=== PATIENT | female | born 1935 | race Caucasian/White ===

== ENCOUNTER 2023-07-26 10:07 | Inpatient (IN) ==
[2023-07-26] MEDS: AMIODARONE 150MG / 100ML D5W IV ONE (10:12)
--- OUTSIDE RECORDS SUMMARY | 2023-07-26 10:13 | External Medical Summary | Summary of Care ---
Author Name Unknown Organization [facility] Address [address] [facility] [place] [address] Phone [phone] Care Team Providers Care Healthcare Liaison Name Role Phone Elijah Rodriguez Primary Care Provider [phone] Reason for Visit * Reason Comments Rheum Follow Up Prolia * Precert (Within 10 days (routine)) - Authorized Specialty Diagnoses / Procedures Referred By Contac t Referred To Contact Rheumatology Diagnoses Age-related osteoporosis without current pathological fracture Procedures [place]OSUMAB 1MG, [place] [address] [place] [address] Referral ID Status Reason Start Date Expiration Date V isits Requested Visits Authorized [id number] Authorized Precert 03/22/2018 03/08/2099 99 99 Encounter Details Date Type Department Care Team (Late st Contact Info) Description 07/17/2023 1:20 PM EDT Office Visit Rheumatology [address] [place], [place] [address] Duane Cantor MD [address] [facility] [place] [address] Senile osteoporosis* Allergies No known active allergiesdocumented as of this encounter (statuses as of 07/17/2023) Medications Medication Sig Dispensed Refills Start Date End Date Status MULTIVITAMIN TABS OR 1 tab by mouth daily 0 12/13/1999 Active VITAMIN D 1000 UNIT PO TABS once daily 0 Active Polyethylene Glycol 3350 17 GM Oral Packet Take 1 Packet by mouth as needed. Pt uses daily 0 07/06/2014 Active Nutritional Supplements (BOOST) LIQD Take 1 Can by mouth three times a day with meals. 0 07/06/2014 Active Denosumab 60 MG/ML Subcutaneous Solution Inject 60 mg under the skin once. Every 6 months 0 Active AMBULATORY MISCELLANEOUS MEDICATIONIndication s:Parkinson's disease (HCC) Inbrija 42 mg capsule. Inhale orally via inhaler up to twice a day for off-periods 60 Cap 3 09/13/2018 Active Fluticasone Propionate 50 MCG/ACT Nasal Suspension (Flonase)Indications :Seasonal allergic rhinitis due to pollen Administer into each nostril 2 Sprays in the morning. 18.2 mL 3 06/05/2021 Active Tums Ultra 1000 1000 MG Oral Tablet Chewable (Calcium Carbonate Antacid) Take 1 Tablet by mouth in the morning. 0 Active Carbidopa-Levodopa 25-100 MG Oral Tablet (Sinemet) TAKE 1 TABLET BY MOUTH AT 6 AM, 9 AM, 12 PM, 3 PM, 6 PM, 9 PM, AND 1/2 TABLET AT BEDTIME 585 Tablet 3 01/15/2023 Active Fludrocortisone Acetate 0.1 MG Oral Tablet (Florinef) Take 1 Tablet by mouth in the morning. 100 Tablet 4 04/20/2023 Active traMADol HCl 50 MG Oral Tablet (Ultram)Indications: History of vertebral compression fracture Take 1 Tablet by mouth every 6 hours as needed for Pain, Mild or Pain, Moderate. 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 Increased risk for Maturity-onset diabetes of the young (MODY3). Please click the link below into your browser for a brief summary of current clinical management recommendations for maturity onset diabetes of the young HNF1A Severe protein-calorie malnutrition 04/25/2022 Stage 3a chronic kidney disease 01/16/2020 Overview: Per CKD protocol - Per CKD protocol History of nonmelanoma skin cancer 02/03/2017 History of vertebral compression fracture 2014 CLL (chronic lymphocytic leukemia) 05/12/2011 Senile osteoporosis 04/05/2008 ADVANCE DIRECTIVE INFORMATION 11/04/2004 Overview: No, Advance Directive brochure given to patient at prior appointment. Vitamin D deficiency 03/18/2004 Sensory hearing loss 12/20/2002 Overview: hearing aid R Retinal detachment Parkinson's disease Overview: L sided- LE>UE akithesia documented as of this encounter (statuses as of 07/17/2023) Resolved Problems Problem Noted Date Diagnosed Date Resolved Date Kidney disease, chronic, sta ge III (GFR 30-59 ml/min) 11/15/2019 01/19/2020 Overview: Per CKD protocol Malignant neoplasm of scalp and skin of neck 2 02/03/2017 Overview: ICD-10 update of inactive term ruptured tiny milia, nape of neck 04/06/98 01/06/2002 11/24/2016 Malignant neoplasm of scalp and skin of neck 2 02/03/2017 Overview: ICD-10 update of inactive term Malignant neoplasm of scalp and skin of neck 2 02/03/2017 Overview: ICD-10 update of inactive term Seborrheic dermatitis 01/06/20022017 Overview: ICD-10 update of inactive term Herpes zoster 01/06/2002 11/24/2016 Raynaud's syndrome 8 Major depressive disorder Overview: ICD-10 update of inactive term Osteoporosis 08/18/2016 documented as of this encounter (statuses as of 07/17/2023) Immunizations Name Administration Dates Next Due COVID-19 mRNA, LNP-s, No Pre serve, 2-Dose Series (Moderna) 06/07/2020,05/07/2020 COVID-19, mRNA, LNP-s, PF, B ooster, 100mcg/0.5mg (Moderna) 01/09/2021 Pneumococcal Conjugate Vacc, 13 Valent (Prevnar) 10/18/2014 Season Influenza, Quad, PF, Adjuvanted, 65+ Yrs, IM (FLUAD) 11/11/2019 Seasonal Influenza, PF, 6 M & above, IM , (FluLaval or Fluzone) 12/06/2018,12/02/2017 Seasonal Influenza, Quadriva lent Hd (Fluzone Hd) 12/11/2022,11/27/2021,12/04/2020 Seasonal Influenza, Quadriva lent, No Preserve, IM 11/19/2016,12/18/2015 12/17/2016 Seasonal Influenza, Split, I IV3, With Preserve, Inj 11/28/2014,12/10/2013,11/20/2012,11/26,11/26/2010,12/19/2009,12/30/2007 ,12/10/2006,12/10/2005 TDAP (age 10 and older)(Boostrix) 01/11/2013 Varicella Zoster Vaccine (Adult) 05/29/2011 documented as of this encounter Social History Tobacco Use Types Packs/Day Years Used Date Smoking Tobacco: Never Smokeless Tobacco: Never Alcohol Use Standard Drinks/Week Comments No 0 (1 standard drink = 0.6 oz pur e alcohol) PHQ-2 Answer Date Recorded PHQ Adult Total Score 0 09/17/2022 Hunger Vital Sign Answer Date Recorded Worried About Running Out of Food in the Last Ye ar Never true 12/08/2018 Ran Out of Food in the Last Year Never true 12/08/2018 Sex and Gender Information Value Date Recorded Sex Assigned at Female 12/29/2021 10:13 AM EDT Gender Identity Female 12/29/2021 10:13 AM EDT Sexual Orientation Straight 12/29/2021 10 :13 AM EDT Job Start Date Occupation Industry Not on file Not on file Not on file documented as of this encounter Last Filed Vital Signs Vital Sign Reading Time Taken Comments Blood Pressure 100/60 07/17/2023 1:17 PM EDT Pulse - - Temperature 36.1 C (97 F) 07/17/2023 1:17 PM EDT Respiratory Rate - - Oxygen Saturation - - Inhaled Oxygen Concentration - - Weight - - Height - - Body Mass Index - - documented in this encounter Progress Notes * Sandy Doe LPN - 07/17/2023 1:34 PM EDT Florencio Canseco presents today for administration of Prolia. She understands the benefits and risksof this treatment. An educational pamphlet was given to the patient. Prolia 60 mg was administered subcutaneously. The patient tolerated the procedure without problems. She will return in 6 months for the next injection and evaluation. Sandy Doe LPN * Duane Cantor MD - 07/17/2023 1:20 PM EDT [facility] ([facility] follow up Previous Visit Plan from 07/2022 reviewed. Reason for visit: Patient seen today for further follow-up/evaluation of osteoporosis. She is remained on Prolia. She has not had a DEXA since 2020 but her states it is difficult to get her here and to do the test. She has had multiple falls recently but no fractures. Bone Health Summary: Risks: Falls since last [facility] visit: yes Personal History of Fx since last [facility] Visit: no Prevention: Exercise : 3 or more times weekly: No Nutrition: eats calcium rich foods, Yes some Gait: unsteady with walking, Yes, use of cane/walker, Yes, walker, wheel chair Calcium and Vitamin D supplements in adequate doses: Yes ROS: . Constitutional: normal . Ears, nose, throat, mouth: normal . Cardiovascular: normal . Respiratory: normal . Gastrointestinal: normal . Musculoskeletal: weak muscles . Genitourinary: normal Medications: Current Outpatient Medications Medication Sig Dispense Refill MULTIVITAMIN TABS OR 1 tab by mouth daily 0 VITAMIN D 1000 UNIT PO TABS once daily Polyethylene Glycol 3350 17 GM Oral Packet Take 1 Packet by mouth as needed. Pt uses daily Nutritional Supplements (BOOST) LIQD Take 1 Can by mouth three times a day with meals. Denosumab 60 MG/ML Subcutaneous Solution Inject 60 mg under the skin once. Every 6 months AMBULATORY MISCELLANEOUS MEDICATION Inbrija 42 mg capsule. Inhale orally via inhaler up to twice a day for off-periods 60 Cap 3 Fluticasone Propionate 50 MCG/ACT Nasal Suspension (Flonase) Administer into each nostril 2 Sprays in the morning. 18.2 mL 3 Tums Ultra 1000 1000 MG Oral Tablet Chewable (Calcium Carbonate Antacid) Take 1 Tablet by mouth in the morning. Carbidopa-Levodopa 25-100 MG Oral Tablet (Sinemet) TAKE 1 TABLET BY MOUTH AT 6 AM, 9 AM, 12 PM, 3 PM, 6 PM, 9 PM, AND 1/2 TABLET AT BEDTIME 585 Tablet 3 Fludrocortisone Acetate 0.1 MG Oral Tablet (Florinef) Take 1 Tablet by mouth in the morning. 100 Tablet 4 traMADol HCl 50 MG Oral Tablet (Ultram) Take 1 Tablet by mouth every 6 hours as needed for Pain, Mild or Pain, Moderate. 90 Tablet 0 Current Facility-Administered Medications Medication Dose Route Frequency Provider Last Rate Last Admin Denosumab (Prolia) subcut inj 60 mg 60 mg Subcutaneous Once Duane Cantor MD Social History: Social History Tobacco Use Smoking status: Never Smokeless tobacco: Never Vaping Use Vaping Use: Never used Substance Use Topics Alcohol use: No Drug use: No Physical Exam: BP 100/60 | Temp 36.1 C (97 F) General: alert, thin, frail eldely female examined in wheel chair HENT: normocephalic, external ears normal, no mucosal erythema, no mucosal edema, moist mucosa, no oral ulcers Heart: regular rate & rhythm and no gallops Lungs: clear to auscultation , no rales, wheezes or rhonchi Abdomen: abdomen soft, non-tender, and normal bowel sounds Musculoskeletal Exam: Generalized weakness noted Thoracic kyphosis noted Assessment: M81.0 Senile osteoporosis (primary encounter diagnosis) 87 year old female with osteoporosis who is on Prolia. Will continue with treatment. Will forego getting any further DEXA is given complications of the patient getting here in onto the table for screening. Plan: The following items are ordered or are in progress: 1. Education: Osteoporosis education was provided by the [facility] team (topics included disease process, DXA, calcium/vitamin D, osteoporosis medications - including administration instructions and risks/benefits, weight bearing exercise, fall prevention/safety). The patient was provided with [facility] patient education instruction sheet(s): Prolia. 2. Prevention: . Fall Prevention/Safety Education recommended and discussed . Continue calcium rich foods (goal of 3 servings daily) 3. Osteoporosis Medications : Continue Prolia 60mg subcutaneous injection every 6 months 4. Bone Density Testing: Will no longer do 5. Laboratory: None needed 6. Followup: Return to [facility] clinic in 1 year Duane Cantor MD [facility] Team documented in this encounter Nursing Notes * Sandy Doe LPN - 07/17/2023 1:18 PM EDT Chief Complaint Patient presents with Rheum Follow Up Prolia documented in this encounter Plan of Treatment Upcoming Encounters Date Type Department Care Team (Late st Contact Info) Description 10/06/2023 2:00 PM EDT Office Visit Neurology [facility] [place] [address] [place], [place] [address] Sujatha Foster PA-C [address] [facility] [place] [address] 11/27/2023 1:00 PM EDT Office Visit Family Practice [facility] [address] [facility] [place] [address] Elijah Rodriguez, [address] [facility] [place], [place] [address] 01/19/2024 1:30 PM EST Nurse Only Rheumatology [address] [place] [address] Pf, Nurse Rheum [address] [place] [address] [place] [address] 07/20/2024 1:20 PM EDT Office Visit Rheumatology [address] [place] [address] Duane Cantor MD [facility] [employer] [facility] [place], [place] [address] Health Maintenance Due Date Last Done Comments Zoster Vaccines (1 of 2) 07/24/2011 05/29/2011 COVID-19 Vaccine (3 - Moderna risk series) 02/06/2021 01/09/2021, 06/07/2020, 05/07/2020 DXA Scan 06/19/2022 06/19/2020, 03/09, 02/18/2016, Additional history exists DTaP,Tdap,and Td Vaccines (2 - Td or Tdap) 01/11/2023 01/11/2013, 12/20/2002 Albumin/Creatinine Ratio 04/25/2023 04/25/2022 CKD PHOS USE SMARTSET 68347 09/18/202309/06, 05/29/2021, 05/10/2020, Additional history exists Depression Screening 09/18/2023 09/17/2022 CKD HGB USE SMARTSET 73109 12/05/202312/04, 12/04/2022, 12/05/2021, Additional history exists Pneumococcal Vaccine: 65+ Years Completed 10/18/2014, 01/05/2002 Influenza Vaccine (FLU shot) Completed 07/2022, 11/27/2021, 12/04/2020, Additional history exists VITAMIN D LEVEL ONCE IN A LIFETIME-USE SMARTSET# 64298 Completed 07/10/2023, 02/14/2022, 08/01/2021, Additional history exists GARDASIL-HPV IMMUNIZATION SERIES Aged Out No longer eligible based on patient's age to complete this topic Hepatitis B Aged Out No longer eligi ble based on patient's age to complete this topic MENINGOCOCCAL (MENACTRA/MENVEO) Aged Out No longer eligible based on patient's age to complete this topic documented as of this encounter Medical Devices Not on filedocumented as of this encounter Visit Diagnoses Diagnosis Senile osteoporosis- Primary documented in this encounter Administered Medications Inactive Administered Medications - up to 3 most recent administrations Medication Order MAR Action Action Date Dose Rate Site Denosumab (Prolia) subcut inj 60 mg 60 mg, Subcutaneous, ONCE, On Thu07/17/23 at 1315, For 1 dose Given 07/17/2023 1:33 PM EDT 60 mg Arm L eft Upper documented in this encounter Care Teams Healthcare Liaison Relationship Specialty Start Date End Date Elijah Rodriguez DO [address] [place] [address] PCP - General Family Medicine 08/21/20 documented as of this encounter"
--- OUTSIDE RECORDS SUMMARY | 2023-07-26 10:13 | External Medical Summary | Summary of Care ---
Author Name Unknown Organization [facility] Address [address] [place] [address] Phone [phone] Care Team Providers Care Supervisor [employer] Name Role Phone RocaelElijah sarabia Primary Care Provider [phone] Reason for Visit * Reason Comments Follow Up Patient here for a s pot on her nose that has been there for several months. Neosporin has been applied. Encounter Details Date Type Department Care Team (Late st Contact Info) Description 07/10/2023 2:30 PM EDT Office Visit Dermatology [facility] [address] [place] [address] Ceasar Van MD [address] [place] [phone] [place] (actinic keratosis)*; Hx of basal cell carcinoma Allergies No known active allergiesdocumented as of this encounter (statuses as of 07/10/2023) Medications Medication Sig Dispensed Refills Start Date [...] mgIndications:Senile osteoporosis 60 mg SC ONCE 07/17/2023 07/18/2023 Active documented as of this encounter (statuses as of 07/10/2023) Active Problems Problem Noted Date Diagnosed Date Paroxysmal atrial fibrillation 12/26/2022 ST elevation myocardial infarction (STEMI) 12/26 Genetic risk for diabetes mellitus 06/06/2022 Overview: pathogenic HNF1A gene variant (c..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 Increased risk for Maturity-onset diabetes of the [...] as of this encounter (statuses as of 07/10/2023) Resolved Problems Problem Noted Date Diagnosed Date [...] as of this encounter (statuses as of 07/10/2023) Immunizations Name Administration Dates Next Due COVID-19 [...] on file documented as of this encounter Progress Notes * Ceasar Van MD - 07/10/2023 2:48 PM EDT SRadha Canseco is a 87 year old female here for an acute visit. Bleeding lesion on the nose x 6mo, better now. Other skin problems today: no Current Outpatient Medications Medication Sig Dispense Refill [...] Route Frequency Provider Last Rate Last Admin [START ON 07/17/2023] Denosumab (Prolia) subcut inj 60 mg 60 mg Subcutaneous Once Duane Cantor MD O. Well-developed female in wheelchair, No acute distress, alert face examined and normal except dorsal nose thin rough papule Assessment: / Plan: Consistent with actinic keratosis; worrisome for basal cell carcinoma per history but exam favors the former. Suggested cryo today and close monitoring - if lesion persists/they will let me know. Pt's in agreement. Cryosurgery explained to the patient, consent obtained, patient, site and procedure verified, and then cryotherapy was performed with Liquid Nitrogen via cryo spray unit to 1 lesions. Location noted in physical exam. Post op course explained. Pt instructed to contact me if treated lesions persist or recur. Follow up: prn Ceasar W Hossler, MD 07/10/2023 2:48 PM documented in this encounter Plan of Treatment Upcoming Encounters Date Type Department Care Team (Late st Contact Info) Description 07/17/2023 1:20 PM EDT Office Visit Rheumatology [place] [id number] [employer] [place] [address] Duane Cantor MD [address] [place] [address] 10/06/2023 2:00 PM EDT Office Visit Neurology [facility] [address] [facility] [place] [address] Sujatha Foster PA-C [address] [facility] [place] [address] 11/27/2023 1:00 PM EDT Office Visit Family Practice [facility] [address] [place] [address] Elijah Rodriguez, [address] [facility] [place] [address] Health Maintenance Due Date Last Done Comments Zoster Vaccines (1 of 2) 07/24/2011 05/29/2011 COVID-19 Vaccine (3 - Moderna risk series) 02/06/2021 01/09/2021, 06/07/2020, 05/07/2020 DXA Scan 06/19/2022 06/19/2020, 03/09, 02/18/2016, Additional history exists DTaP,Tdap,and Td Vaccines (2 - Td or Tdap) 01/11/2023 01/11/2013, 12/20/2002 Albumin/Creatinine Ratio 04/25/2023 04/25/2022 CKD PHOS USE SMARTSET 33292 09/18/202309/06, 05/29/2021, 05/10/2020, Additional history exists Depression Screening 09/18/2023 09/17/2022 CKD HGB USE SMARTSET 53547 12/05/202312/04, 12/04/2022, 12/05/2021, Additional history exists Pneumococcal Vaccine: 65+ Years Completed 10/18/2014, 01/05/2002 VITAMIN D LEVEL ONCE IN A LIFETIME-USE SMARTSET# 43417 Completed 02/14/2022, 08/01/2021, 11/11/2019, Additional history exists Influenza Vaccine (FLU shot) Completed 07/2022, 11/27/2021, 12/04/2020, Additional history exists GARDASIL-HPV IMMUNIZATION SERIES Aged [...] as of this encounter Visit Diagnoses Diagnosis AK (actinic keratosis)- Primary Actinic keratosis Hx of basal cell carcinoma Personal history of other malignant neoplasm of skin documented in this encounter Care Teams Supervisor [employer] Relationship Specialty Start Date End Date Elijah Rodriguez DO [address] [place] [address] PCP - General Family Medicine 08/21/20 documented as of this encounter
--- OUTSIDE RECORDS SUMMARY | 2023-07-26 10:14 | External Medical Summary ---
Author Name Unknown Address Unknown Organization K01:[facility] [place] [address] [facility] [address] Laboratory Report Ordering Provider Test Date Status JESSICA JORDAN 04/24/2023 14:48:19 Final Observation Date Value Abnormality Reference (Units ) Status Adenovirus DNA [Presence] in Nasopharynx by HARRY with non-probe detection 04/24/2023 14:48:19 Negative Negative Final Human coronavirus 229E RNA [Presence] in Nasopharynx by HARRY with non-probe detection 04/24/2023 14:48:19 Negative Negative Final Human coronavirus HKU1 RNA [Presence] in Nasopharynx by HARRY with non-probe detection 04/24/2023 14:48:19 Negative Negative Final Human coronavirus NL63 RNA [Presence] in Nasopharynx by HARRY with non-probe detection 04/24/2023 14:48:19 Negative Negative Final Human coronavirus OC43 RNA [Presence] in Nasopharynx by HARRY with non-probe detection 04/24/2023 14:48:19 Negative Negative Final SARS-CoV-2 (COVID-19) RNA [Presence] in Nasopharynx by HARRY with non-probe detection 04/24/2023 14:48:19 Negative Negative Final Human metapneumovirus RNA [Presence] in Nasopharynx by HARRY with non-probe detection 04/24/2023 14:48:19 Negative Negative Final Rhinovirus+Enterovirus RNA [Presence] in Nasopharynx by HARRY with non-probe detection 04/24/2023 14:48:19 Negative Negative Final Influenza virus A RNA [Presence] in Nasopharynx by HARRY with non-probe detection 04/24/2023 14:48:19 Negative Negative Final Influenza virus B RNA [Presence] in Nasopharynx by HARRY with non-probe detection 04/24/2023 14:48:19 Negative Negative Final Parainfluenza virus 1 RNA [Presence] in Nasopharynx by HARRY with non-probe detection 04/24/2023 14:48:19 Negative Negative Final Parainfluenza virus 2 RNA [Presence] in Nasopharynx by HARRY with non-probe detection 04/24/2023 14:48:19 Negative Negative Final Parainfluenza virus 3 RNA [Presence] in Nasopharynx by HARRY with non-probe detection 04/24/2023 14:48:19 Negative Negative Final Parainfluenza virus 4 RNA [Presence] in Nasopharynx by HARRY with non-probe detection 04/24/2023 14:48:19 Negative Negative Final Respiratory syncytial virus RNA [Presence] in Nasopharynx by HARRY with non-probe detection 04/24/2023 14:48:19 Positive Abnormal Negative Final Respiratory Syncytial virus detected by PCR (amplified probe). Test results reported to [facility]. Bordetella pertussis.pertuss is toxin promoter region [Presence] in Nasopharynx by HARRY with non-probe detection 04/24/2023 14:48:19 Negative Negative Final Chlamydophila pneumoniae DNA [Presence] in Nasopharynx by HARRY with non-probe detection 04/24/2023 14:48:19 Negative Negative Final Mycoplasma pneumoniae DNA [P resence] in Nasopharynx by HARRY with non-probe detection 04/24/2023 14:48:19 Negative Negative Final Bordetella parapertussis IS1 001 DNA [Presence] in Nasopharynx by HARRY with non-probe detection 04/24/2023 14:48:19 Negative Negative F inal
The primers that detect Rhinovirus may cross react with some Enterorviruses. The validation of bronchial specimens, tracheal aspirates, and throats for this assay was developed and performance characteristics determined by [employer]. The validation of alternate specimen types has not been cleared or approved by the U.S. Food and Drug Administration (FDA). It has been determined that such clearance or approval is not necessary. Performing Location LABORATORY [place] [address] [address]. [facility], [place] [address]
--- OUTSIDE RECORDS SUMMARY | 2023-07-26 10:14 | External Medical Summary | Summary of Care ---
Author Name Unknown Organization [facility] Address [address] [facility] [address] Phone [phone] Care Team Providers Care Attorney Name Role Phone Elijah Rodriguez DO Primary Care Provider +1 [phone] Reason for Visit * Reason Comments Re-Check Encounter Details Date Type Department Care Team (Latest Contact Info) Description 04/24/2023 2:20 PM EST Office Visit [facility] [place] [address] [facility] [place] [address] Elijah Rodriguez DO [address] [facility] [place] [address] Chronic sore throat*; CLL (chronic lymphocytic leukemia) (HCC); Paroxysmal atrial fibrillation (HCC); Stage 3a chronic kidney disease (HCC); Severe protein-calorie malnutrition (HCC); Parkinson's disease, unspecified whether dyskinesia present, unspecified whether manifestations fluctuate Allergies No known active allergiesdocumented as of this encounter (statuses as of 04/27/2023) Medications Medication Sig Dispensed Refills Start Date [...] 0 Active AMBULATORY MISCELLANEOUS MEDICATIONIndication s:Parkinson's disease Inbrija 42 mg capsule. Inhale orally via [...] AT BEDTIME 585 Tablet 3 01/15/2023 Active traMADol HCl 50 MG Oral Tablet (Ultram)Indications: History of vertebral compression fracture Take 1 Tablet by mouth every 6 hours as needed for Pain, Mild or Pain, Moderate. 90 Tablet 0 02/09/2023 Active Fludrocortisone Acetate 0.1 MG Oral Tablet (Florinef) Take 1 Tablet by mouth in the morning. 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 Increased risk for Maturity-onset diabetes of the [...] as of this encounter (statuses as of 04/27/2023) Resolved Problems Problem Noted Date Diagnosed Date [...] as of this encounter (statuses as of 04/27/2023) Immunizations Name Administration Dates Next Due COVID-19 [...] Sign Reading Time Taken Comments Blood Pressure 110/68 04/24/2023 2:12 PM EST Pulse 93 04/24/2023 2:12 PM EST Temperature 36.6 C (97.8 F) 04/24/2023 2:12 PM ES T Respiratory Rate 16 04/24/2023 2:12 PM EST Oxygen Saturation 93% 04/24/2023 2:12 PM EST Inhaled Oxygen Concentration - - Weight 30.6 kg (67 lb 6.4 oz) 04/24/2023 2:12 PM EST Height - - Body Mass Index 13.61 12/18/2021 3:23 PM EDT documented in this encounter Progress Notes * Elijah Rodriguez DO - 04/24/2023 2:35 PM EST Subjective: Florencio Canseco is a 87 year old female. Chief Complaint Patient presents with Re-Check HPI: Not passing out anympore with taking Florinef. No obvious side effects on it. BP looks better. Just woke up without a voice today. No other symptoms. No runny nose or ear pain. had a cold two weeks ago. No specific dieasese. No N/V/D. No SOB or wheeze. Temp looks good. More foggy last night and this morning. Doing her best with eating. 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 CLL (chronic lymphocytic leukemia) ([facility]) C91.10 History of vertebral compression fracture Z87.81 History of nonmelanoma skin cancer Z85.828 Stage 3a chronic kidney disease N18.31 Severe protein-calorie malnutrition ([facility]) E43 Genetic risk for diabetes mellitus Z15.89 Paroxysmal atrial fibrillation ([facility]) I48.0 ST elevation myocardial infarction (STEMI) ([facility]) I21.3 Current Outpatient Medications Medication Sig Dispense Refill [...] 1/2 TABLET AT BEDTIME 585 Tablet 3 traMADol HCl 50 MG Oral Tablet (Ultram) Take 1 Tablet by mouth every 6 hours as needed for Pain, Mild or Pain, Moderate. 90 Tablet 0 Fludrocortisone Acetate 0.1 MG Oral Tablet (Florinef) Take 1 Tablet by mouth in the morning. 100 Tablet 4 No current facility-administered medications for this visit. Review of patient's allergies indicates: No Known Allergies OBJECTIVE: BP 110/68 | Pulse 93 | Temp 36.6 C (97.8 F) (Tympanic) | Resp 16 | Wt 30.6 kg (67 lb 6.4 oz) | SpO2 93% | BMI 13.61 kg/m | BSA 1.13 m Estimated body mass index is 13.61 kg/m as calculated from the following: Height as of 12/18/21: 1.499 m (4' 11"). Weight as of this encounter: 30.6 kg (67 lb 6.4 oz). BP Readings from Last 3 Encounters: 04/24/23 110/68 04/20/23 108/64 02/20/23 98/58 Wt Readings from Last 3 Encounters: 04/24/23 30.6 kg (67 lb 6.4 oz) 04/20/23 29.8 kg (65 lb 11.2 oz) 02/20/23 29 kg (64 lb) ROS: Negative except for above PHYSICAL EXAM: General: alert, healthy, and no distress Head: Normocephalic, No masses, lesions, tenderness or abnormalities Heart: regular rate & rhythm, no murmur, and no gallops Lungs: chest symmetric with normal AP diameter, no chest deformities noted, no chest wall tenderness, lungs clear to auscultation ASSESSMENT/Plan Chronic sore throat (Primary) - RESPIRATORY PATHOGEN PANEL, PCR; Future; Expected date: 04/24/2023 - RESPIRATORY PATHOGEN PANEL, PCR CLL (chronic lymphocytic leukemia) (HCC) Paroxysmal atrial fibrillation (HCC) Stage 3a chronic kidney disease (HCC) Severe protein-calorie malnutrition (HCC) Parkinson's disease, unspecified whether dyskinesia present, unspecified whether manifestations fluctuate I spent a total of 30 minutes on the date of service in preparation, delivery, and documentation ofthe care provided to this patient, excluding any time spent on the performance of any procedure or separately billable services. Swab taken today in case this becomes more persistent. I'm very encouraged by her results with Aline so far. The above was discussed and understanding was expressed. Elijah Rodriguez DO documented in this encounter Nursing Notes * Lilly Darby LPN - 04/24/2023 2:08 PM EST Florencio Canseco presents for 4 month recheck. Medications & HM reviewed. Denies any concerns at this time documented in this encounter Plan of Treatment Upcoming Encounters Date Type Department Care Team (Late st Contact Info) Description 07/10/2023 2:30 PM EDT Office Visit Dermatology [facility] [address] [place] [address] Ceasar Van MD [address] [place] [address] 07/17/2023 1:20 PM EDT Office Visit Rheumatology [place] [address] [place] [address] Duane Cantor MD [address] [facility] [place] [address] 10/06/2023 2:00 PM EDT Office Visit Neurology [facility] [place] [address] [place] [address] Sujatha Foster PA-C [address] [place] [address] 11/27/2023 1:00 PM EDT Office Visit Family Practice [facility] [place] [address] [place] [address] Elijah Rodriguez, DO [address] [facility] [place] [address] Health Maintenance Due Date Last Done Comments Zoster Vaccines (1 of 2) 07/24/2011 05/29/2011 COVID-19 Vaccine (3 - Moderna risk series) 02/06/2021 01/09/2021, 06/07/2020, 05/07/2020 DXA Scan 06/19/2022 06/19/2020, 03/09, 02/18/2016, Additional history exists DTaP,Tdap,and Td Vaccines (2 - Td or Tdap) 01/11/2023 01/11/2013, 12/20/2002 Albumin/Creatinine Ratio 04/25/2023 04/25/2022 CKD PHOS USE SMARTSET 28718 09/18/202309/06, 05/29/2021, 05/10/2020, Additional history exists Depression Screening 09/18/2023 09/17/2022 CKD HGB USE SMARTSET 28222 12/05/202312/04, 12/04/2022, 12/05/2021, Additional history exists Pneumococcal Vaccine: 65+ Years Completed 10/18/2014, 01/05/2002 VITAMIN D LEVEL ONCE IN A LIFETIME-USE SMARTSET# 71192 Completed 02/14/2022, 08/01/2021, 11/11/2019, Additional history exists [...] Not on filedocumented as of this encounter Procedures Procedure Name Priority Date/Time Associated Diagnosis Comments RESPIRATORY PATHOGEN PANEL, PCR Routine 04/24/2023 2:48 PM EST Chronic sore throat documented in this encounter Results * (ABNORMAL) RESPIRATORY PATHOGEN PANEL, PCR (04/24/2023 2:48 PM EST) Adenovirus by PCR Negative Negative 024 3:12 AM EST [facility] Coronavirus 229E by PCR Negative Negative 04/25/2023 3:12 AM EST [facility] Coronavirus HKU1 by PCR Negative Negative 04/25/2023 3:12 AM EST [facility] Coronavirus NL63 by PCR Negative Negative 04/25/2023 3:12 AM EST [facility] Coronavirus OC43 by PCR Negative Negative 04/25/2023 3:12 AM EST [facility] Coronavirus SARS-CoV-2 by PCR Negative Negative 04/25/2023 3:12 AM EST [facility] Human Metapneumovirus by PCR Negative Negative 04/25/2023 3:12 AM EST [facility] Rhinovirus/Enterov irus by PCR Negative Negative 04/25/2023 3:12 AM EST [facility] Influenza A Virus by PCR Negative Negative 04/25/2023 3:12 AM EST [facility] Influenza B Virus by PCR Negative Negative 04/25/2023 3:12 AM EST [facility] Parainfluenza Virus 1 by PCR Negative Negative 04/25/2023 3:12 AM EST [facility] Parainfluenza Virus 2 by PCR Negative Negative 04/25/2023 3:12 AM EST [facility] Parainfluenza Virus 3 by PCR Negative Negative 04/25/2023 3:12 AM EST [facility] Parainfluenza Virus 4 by PCR Negative Negative 04/25/2023 3:12 AM EST [facility] Respiratory Syncytial Virus by PCR Positive(A) Negative 04/25/2023 3:12 AM EST [facility] Comment:Respiratory Syncytia l virus detected by PCR (amplified probe). Test results reported to [facility]. Bordetella pertussis by PCR Negative Negative 04/25/2023 3:12 AM EST LABORATORY [facility] Chlamydia pneumoniae by PCR Negative Negative 04/25/2023 3:12 AM EST [facility] Mycoplasma pneumoniae by PCR Negative Negative 04/25/2023 3:12 AM EST [facility] Bordetella parapertussis by PCR Negative Negative 04/25/2023 3:12 AM EST [facility] Comment: The primers that detect Rhinovirus may cross react with some Enterorviruses. The validation of bronchial specimens, tracheal aspirates, and throats for this assay was developed and performance characteristics determined by [employer]. The validation of alternate specimen types has not been cleared or approved by the U.S. Food and Drug Administration (FDA). It has been determined that such clearance or approval is not necessary. Upper Respiratory Nasopharyngeal swab / Unknown Non-blood Collection / Unknown 04/24/2023 2:48 PM EST 04/24/2023 3:54 PM EST Elijah Rodriguez DO LAB MICRO - GENERAL ORDERABLES [facility] [address] [place] [address] documented in this encounter Visit Diagnoses Diagnosis Chronic sore throat- Primary Chronic pharyngitis CLL (chronic lymphocytic leukemia) (HCC) Chronic lymphoid leukemia, without mention of having achieved remission Paroxysmal atrial fibrillation (HCC) Atrial fibrillation Stage 3a chronic kidney disease (HCC) Severe protein-calorie malnutrition (HCC) Other severe protein-calorie malnutrition Parkinson's disease, unspecified whether dyskinesia present, unspecified whether manifestations fluctuate documented in this encounter Additional Health Concerns Infection Onset Date Last Indicated Resolved Time Respiratory Rule-Out 04/24/2023 04/24/2023 024 3:12 AM EST documented as of this encounter Care Teams Attorney Relationship Specialty Start Date End Date Elijah Rodriguez DO [address] [place] [address] [place] [address] PCP - General Family Medicine 08/21/20 documented as of this encounter
--- OUTSIDE RECORDS SUMMARY | 2023-07-26 10:14 | External Medical Summary ---
Author Name Unknown Address Unknown Organization K01:LABORATORY [facility] - [address] [place] [address] Laboratory Report Ordering Provider Test Date Status TIFFANIE SCHAFFER 07/10/2023 14:09:28 Final Deficient: <20 ng/mL
Ins ufficient: 20-29 ng/mL
Recommended/Optimum:30-50 ng/mL

Vitamin D intoxication is rare. If suspicious of Vitamin D toxicity, evaluation of serum Calcium and PTH is recommended. Observation Date Value Abnormality Reference (Units ) Status 25-OH Vitamin D total 07/10/2023 14:09:28 38 >19 (ng/mL) Final Performing Location LABORATORY [facility] - [address] [place] [address]
--- OUTSIDE RECORDS SUMMARY | 2023-07-26 10:14 | External Medical Summary ---
Author Name Unknown Address Unknown Organization K01:LABORATORY [facility] [place] - [address] [facility] [address] [place] [address] Laboratory Report Ordering Provider Test Date Status ISABELLA NAVARRO 07/10/2023 14:09:28 Final Observation Date Value Abnormality Reference (Units ) Status MYCODE SPECIMEN-SST 07/10/2023 14:09:28 Freezing of extracted DNA, whole blood and/or serum. Final Performing Location LABORATORY [facility] - [address] [place] [address]
--- OUTSIDE RECORDS SUMMARY | 2023-07-26 10:14 | External Medical Summary | Summary of Care ---
Author Name Unknown Organization [facility] Address [address] [place] [address] Phone [phone] Care Team Providers Care Fine Arts Packer Name Role Phone Deonte Rodrigueze Abdiel TALBERT Primary Care Provider [phone] Reason for Visit * Reason Comments Outpatient Testing Encounter Details Date Type Department Care Team (Late st Contact Info) Description 03/03/2023 1:40 PM EST Laboratory Laboratory [facility] [address] [place] [id number] [facility] [address] [place] [address] Orthostatic hypotension; Syncope, unspecified syncope type Allergies No known active allergiesdocumented as of this encounter (statuses as of 03/03/2023) Medications Medication Sig Dispensed Refills Start Date [...] 1 Tablet by mouth in the morning. 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 Increased risk for Maturity-onset diabetes of the [...] as of this encounter (statuses as of 03/03/2023) Resolved Problems Problem Noted Date Diagnosed Date [...] as of this encounter (statuses as of 03/03/2023) Immunizations Name Administration Dates Next Due COVID-19 [...] on file documented as of this encounter Plan of Treatment Upcoming Encounters Date Type Department Care Team (Late st Contact Info) Description 04/24/2023 3:00 PM EST Office Visit Family Practice [facility] [place] [address] [place] [address] [address] Elijah Rodriguez, [address] [place] [address] 07/17/2023 1:20 PM EDT Office Visit Rheumatology [place] [address] [place] [address] Duane Cantor MD [address] [employer] [place], [place] [address] 10/06/2023 2:00 PM EDT Office Visit Neurology [facility] [place] [address] [facility] [place] [address] Sujatha Foster PA-C [address] [facility] [place] [address] Pending Results Name Type Priority Associated Diagnoses Date /Time BASIC METABOLIC PANEL Lab Routine Orthostatic hypotension Syncope, unspecified syncope type 03/03/2023 1:45 PM EST Health Maintenance Due Date Last Done Comments Zoster Vaccines (1 of 2) 07/24/2011 05/29/2011 COVID-19 Vaccine (3 - Moderna risk series) 02/06/2021 01/09/2021, 06/07/2020, 05/07/2020 DXA Scan 06/19/2022 06/19/2020, 03/09, 02/18/2016, Additional history exists DTaP,Tdap,and Td Vaccines (2 - Td or Tdap) 01/11/2023 01/11/2013, 12/20/2002 Albumin/Creatinine Ratio 04/25/2023 04/25/2022 CKD PHOS USE SMARTSET 50519 09/18/202309/06, 05/29/2021, 05/10/2020, Additional history exists Depression Screening 09/18/2023 09/17/2022 CKD HGB USE SMARTSET 92129 12/05/202312/04, 12/04/2022, 12/05/2021, Additional history exists Pneumococcal Vaccine: 65+ Years Completed 10/18/2014, 01/05/2002 VITAMIN D LEVEL ONCE IN A LIFETIME-USE SMARTSET# 36272 Completed 02/14/2022, 08/01/2021, 11/11/2019, Additional history exists [...] as of this encounter Visit Diagnoses Diagnosis Orthostatic hypotension Syncope, unspecified syncope type documented in this encounter Care Teams Fine Arts Packer Relationship Specialty Start Date End Date Elijah Rodriguez DO [address] [place] [address] PCP - General Family Medicine 08/21/20 documented as of this encounter
--- OUTSIDE RECORDS SUMMARY | 2023-07-26 10:14 | External Medical Summary | Summary of Care ---
Author Name Unknown Organization [facility] Address [address] [facility] [place] [address] Phone [phone] Care Team Providers Care Business Administration Program Chair Name Role Phone CherieElijah day Abdiel TALBERT Primary Care Provider +1 [phone] Reason for Visit * Reason Onset Date Comments Test Results 03/04/2023 Encounter Details Date Type Department Care Team (Late st Contact Info) Description 03/04/2023 Telephone Cardiology, 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 Increased risk for Maturity-onset diabetes of the [...] as of this encounter (statuses as of 03/04/2023) Resolved Problems Problem Noted Date Diagnosed Date [...] as of this encounter (statuses as of 03/04/2023) Immunizations Name Administration Dates Next Due COVID-19 [...] on file documented as of this encounter Miscellaneous Notes * Telephone Encounter - Angélica Mcpherson CMA - 03/04/2023 4:14 PM EST My g sent. * Telephone Encounter - Angélica Mcpherson CMA - 03/04/2023 4:13 PM EST ----- Message from Rosendo Santiago DO sent at 03/04/2023 10:46 AM EST ----- Stable BMP. No med changes. documented in this encounter Plan of Treatment Upcoming Encounters Date Type Department Care Team (Late st Contact Info) Description 04/24/2023 3:00 PM EST Office Visit Family Practice [facility] [address] [facility] [place] [address] Elijah Rodriguez DO [address] [facility] [place] [address] 07/17/2023 1:20 PM EDT Office Visit Rheumatology [place] [address] [place] [address] Duane Cantor MD [address] [place] [address] 10/06/2023 2:00 PM EDT Office Visit Neurology [facility] [address] [place] [address] Sujatha Foster PA-C [address] [facility] [place] [address] Health Maintenance Due Date Last Done Comments Zoster Vaccines (1 of 2) 07/24/2011 05/29/2011 COVID-19 Vaccine (3 - Moderna risk series) 02/06/2021 01/09/2021, 06/07/2020, 05/07/2020 DXA Scan 06/19/2022 06/19/2020, 03/09, 02/18/2016, Additional history exists DTaP,Tdap,and Td Vaccines (2 - Td or Tdap) 01/11/2023 01/11/2013, 12/20/2002 Albumin/Creatinine Ratio 04/25/2023 04/25/2022 CKD PHOS USE SMARTSET 99433 09/18/202309/06, 05/29/2021, 05/10/2020, Additional history exists Depression Screening 09/18/2023 09/17/2022 CKD HGB USE SMARTSET 21246 12/05/202312/04, 12/04/2022, 12/05/2021, Additional history exists Pneumococcal Vaccine: 65+ Years Completed 10/18/2014, 01/05/2002 VITAMIN D LEVEL ONCE IN A LIFETIME-USE SMARTSET# 45337 Completed 02/14/2022, 08/01/2021, 11/11/2019, Additional history exists [...] Not on filedocumented as of this encounter Care Teams Business Administration Program Chair Relationship Specialty Start Date End Date Elijah Rodriguez DO [address] [place] [address] PCP - General Family Medicine 08/21/20 documented as of this encounter
--- OUTSIDE RECORDS SUMMARY | 2023-07-26 10:14 | External Medical Summary | Summary of Care ---
Author Name Unknown Organization [facility] Address [address] [facility] [place] [address] Phone [phone] Care Team Providers Care Re Etcher Name Role Phone Elijah Rodriguez DO Primary Care Provider [phone] Reason for Visit * Reason Onset Date Comments Medication Refill 05/14/2023 Encounter Details Date Type Department Care Team (Late st Contact Info) Description 05/14/2023 Refill [facility] [address] [facility] [place] [address] Elijah Rodriguez DO 200 [place] [address] History of vertebral compression fracture Allergies No known active allergiesdocumented as of this encounter (statuses as of 05/15/2023) Medications Medication Sig Dispensed Refills Start Date [...] Every 6 months 0 Active AMBULATORY MISCELLANEOUS MEDICATIONIndicatio ns:Parkinson's disease Inbrija 42 mg capsule. Inhale orally via inhaler up to twice a day for off-periods 60 Cap 3 09/13/2018 Active Fluticasone Propionate 50 MCG/ACT Nasal Suspension (Flonase)Indication s:Seasonal allergic rhinitis due to pollen Administer into [...] Active traMADol HCl 50 MG Oral Tablet (Ultram)Indications :History of vertebral compression fracture Take 1 Tablet by mouth every 6 hours as needed for Pain, Mild or Pain, Moderate. 90 Tablet 0 05/15/2023 Active traMADol HCl 50 MG Oral Tablet (Ultram)Indications :History of vertebral compression fracture Take 1 Tablet by mouth every 6 hours as needed for Pain, Mild or Pain, Moderate. 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 Increased risk for Maturity-onset diabetes of the [...] as of this encounter (statuses as of 05/15/2023) Resolved Problems Problem Noted Date Diagnosed Date [...] as of this encounter (statuses as of 05/15/2023) Immunizations Name Administration Dates Next Due COVID-19 [...] encounter Miscellaneous Notes * Telephone Encounter - Kelly Birmingham MD - 05/15/2023 11:31 AM ESTSigned Prescriptions: Disp Refills traMADol HCl 50 MG Oral Tablet (Ultram) 90 Tab*0 Sig: Take 1 Tablet by mouth every 6 hours as needed for Pain, Mild or Pain, Moderate. Authorizing Provider: KELLY BIRMINGHAM * Telephone Encounter - Nadine Oates [facility] - 05/15/2023 8:30 AM EST Pending Prescriptions: Disp Refills traMADol HCl 50 MG Oral Tablet (Ultram) 90 Tab*0 Sig: Take 1 Tablet by mouth every 6 hours as needed for Pain, Mild or Pain, Moderate. * Telephone Encounter - Nadine Oates [facility] - 05/15/2023 8:29 AM EST I have reviewed the patients controlled substance dispensing history in the Prescription Drug Monitoring Program in compliance with the [facility] regulations before prescribing a controlled substance. PDMP checked on 05/15/2023. Pending Prescriptions: Disp Refills traMADol HCl 50 MG Oral Tablet (Ultram) 90 Tab*0 Sig: Take 1 Tablet by mouth every 6 hours as needed for Pain, Mild or Pain, Moderate. Last Visit: 04/24/2023 (in office), Visit date not found (telemedicine) Next Visit: 11/27/2023 Date medication was last filled: 02/10/23 Date medication is due for refill: 03/04/23 Pharmacy: [facility] [address] [facility] Is this request for a controlled substance? Yes and Urine Drug Screen Not completed Toxicology results: No results found for this or any previous visit. Please approve if appropriate. Thank you, Nadine Oates PharmD, [place] Clinical Pharmacist [facility] ([facility]) (formerly Telepharmacy) 05/15/23 8:29 AM [phone] documented in this encounter Plan of Treatment Upcoming Encounters Date Type Department Care Team (Late st Contact Info) Description 07/10/2023 2:30 PM EDT Office Visit Dermatology [facility] [address] [facility] [place] [address] Ceasar Van MD 16 [place] [address] 07/17/2023 1:20 PM EDT Office Visit Rheumatology [place] [id number] [place] [address] Duane Cantor MD [address] [place] [address] 10/06/2023 2:00 PM EDT Office Visit Neurology [facility] [address] [facility] [place] [address] Sujatha Foster PA-C [address] [facility] [place] [address] 11/27/2023 1:00 PM EDT Office Visit Family Practice [facility] [address] [facility] [place] [address] Elijah Rodriguez, [address] [facility] [place] [address] Health Maintenance Due Date Last Done Comments Zoster Vaccines (1 of 2) 07/24/2011 05/29/2011 COVID-19 Vaccine (3 - Moderna risk series) 02/06/2021 01/09/2021, 06/07/2020, 05/07/2020 DXA Scan 06/19/2022 06/19/2020, 03/09, 02/18/2016, Additional history exists DTaP,Tdap,and Td Vaccines (2 - Td or Tdap) 01/11/2023 01/11/2013, 12/20/2002 Albumin/Creatinine Ratio 04/25/2023 04/25/2022 CKD PHOS USE SMARTSET 58486 09/18/202309/06, 05/29/2021, 05/10/2020, Additional history exists Depression Screening 09/18/2023 09/17/2022 CKD HGB USE SMARTSET 42872 12/05/202312/04, 12/04/2022, 12/05/2021, Additional history exists Pneumococcal Vaccine: 65+ Years Completed 10/18/2014, 01/05/2002 VITAMIN D LEVEL ONCE IN A LIFETIME-USE SMARTSET# 28492 Completed 02/14/2022, 08/01/2021, 11/11/2019, Additional history exists [...] as of this encounter Visit Diagnoses Diagnosis History of vertebral compression fracture documented in this encounter Additional Health Concerns Infection Onset Date Last Indicated Resolved Time RSV 04/24/2023 04/24/2023 05/15/2023 12:1 9 AM EST documented as of this encounter Care Teams Re Etcher Relationship Specialty Start Date End Date Elijah Rodriguez DO [address] [place] [address] PCP - General Family Medicine 08/21/20 documented as of this encounter
--- OUTSIDE RECORDS SUMMARY | 2023-07-26 10:14 | External Medical Summary ---
Author Name Unknown Address Unknown Organization K09:[facility] [place] [address] Laboratory Report Ordering Provider Test Date Status MG DANG 03/03/2023 13:45:03 Final Observation Date Value Abnormality Reference (Units ) Status BUN 03/03/2023 13:45:03 43 Above high normal 6-20 (mg/dL) Final Creatinine 03/03/2023 13:45:03 1.2 Above high normal 0.5-1.0 (mg/dL) Final Glomerular filtration rate/1.73 sq M.predicted [Volume Rate/Area] in Serum, Plasma or Blood by Creatinine-based formula (CKD-EPI) 03/03/2023 13:45:03 43 Below low normal >=60 (mL/min) Final eGFR is calculated based on the CKD-EPI 2020 equation SODIUM 03/03/2023 13:45:03 140 135-146 (m mol/L) Final Potassium 03/03/2023 13:45:03 4.3 3.5-5.1 (m mol/L) Final Cl 03/03/2023 13:45:03 99 98-107 (mm ol/L) Final CO2 03/03/2023 13:45:03 27 22-32 (mmo l/L) Final Anion gap 03/03/2023 13:45:03 14 7-15 (mmol /L) Final Glucose 03/03/2023 13:45:03 140 Above high normal 70 -120 (mg/dL) Final Calcium 03/03/2023 13:45:03 9.6 8.4-10.2 ( mg/dL) Final Performing Location [facility] [place] [address]
--- OUTSIDE RECORDS SUMMARY | 2023-07-26 10:14 | External Medical Summary | Summary of Care ---
Author Name Unknown Organization [facility] Address [address] [facility] [place] [address] Phone [phone] Care Team Providers Care Diesel Service Apprentice Name Role Phone RocaelElijah sarabia Primary Care Provider [phone] Reason for Visit * Reason Onset Date Comments Order Request 07/08/2023 Lab / prolia Encounter Details Date Type Department Care Team (Late st Contact Info) Description 07/08/2023 Telephone Rheumatology [facility] [address] [place] [address] Duane Cantor MD [address] [place] [address] Order Request (Lab / prolia) Allergies No known active allergiesdocumented as of this encounter (statuses as of 07/08/2023) Medications Medication Sig Dispensed Refills Start Date [...] as of this encounter (statuses as of 07/08/2023) Active Problems Problem Noted Date Diagnosed Date Paroxysmal atrial fibrillation 12/26/2022 ST elevation myocardial infarction (STEMI) 12/26 Genetic risk for diabetes mellitus 06/06/2022 Overview: 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 Increased risk for Maturity-onset diabetes of the [...] as of this encounter (statuses as of 07/08/2023) Resolved Problems Problem Noted Date Diagnosed Date [...] as of this encounter (statuses as of 07/08/2023) Immunizations Name Administration Dates Next Due COVID-19 [...] encounter Miscellaneous Notes * Telephone Encounter - Duane Cantor MD - 07/08/2023 4:34 PM EDT signed * Telephone Encounter - Rama Doe LPN - 07/08/2023 3:57 PM EDT Chart reviewed. Patient has been seen within the last 12 months by a Rheumatology provider. Prolia authorization approved and updated in referral. Last injection has been > 6 months and 1 day. CAMorders pended for signature. Pt needs updated labs, orders pended, pt notified via , verbalized understanding documented in this encounter Plan of Treatment Upcoming Encounters Date Type Department Care Team (Late st Contact Info) Description 07/10/2023 2:30 PM EDT Office Visit Dermatology [facility] 200 [facility] [place] [address] Ceasar Van MD [address] [place] [address] 07/17/2023 1:20 PM EDT Office Visit Rheumatology [place] [address] [place] [address] Duane Cantor MD [address] [place] [address] 10/06/2023 2:00 PM EDT Office Visit Neurology [facility] [address] [facility] [place] [address] Sujatha Foster PA-C [address] [facility] [place] [address] 11/27/2023 1:00 PM EDT Office Visit Family Practice [facility] [address] [facility] [place] [address] Elijah Rodriguez DO [address] [facility] [place] [address] Scheduled Orders Name Type Priority Associated Diagnoses Orde r Schedule COMPREHENSIVE METABOLIC PANEL Lab Routine Senile osteoporosis Expected: 07/08/2023, Expires: 07/07/2024 25-HYDROXY VITAMIN D Lab Routine Senile osteoporosis Expected: 07/08/2023, Expires: 07/07/2024 Health Maintenance Due Date Last Done Comments Zoster Vaccines (1 of 2) 07/24/2011 05/29/2011 COVID-19 Vaccine (3 - Moderna risk series) 02/06/2021 01/09/2021, 06/07/2020, 05/07/2020 DXA Scan 06/19/2022 06/19/2020, 03/09, 02/18/2016, Additional history exists DTaP,Tdap,and Td Vaccines (2 - Td or Tdap) 01/11/2023 01/11/2013, 12/20/2002 Albumin/Creatinine Ratio 04/25/2023 04/25/2022 CKD PHOS USE SMARTSET 79973 09/18/202309/06, 05/29/2021, 05/10/2020, Additional history exists Depression Screening 09/18/2023 09/17/2022 CKD HGB USE SMARTSET 03849 12/05/202312/04, 12/04/2022, 12/05/2021, Additional history exists Pneumococcal Vaccine: 65+ Years Completed 10/18/2014, 01/05/2002 VITAMIN D LEVEL ONCE IN A LIFETIME-USE SMARTSET# 93298 Completed 02/14/2022, 08/01/2021, 11/11/2019, Additional history exists [...] Senile osteoporosis- Primary documented in this encounter Care Teams Diesel Service Apprentice Relationship Specialty Start Date End Date Elijah Rodriguez DO [address] [place] [address] PCP - General Family Medicine 08/21/20 documented as of this encounter
--- OUTSIDE RECORDS SUMMARY | 2023-07-26 10:14 | External Medical Summary | Summary of Care ---
Author Name Unknown Organization [facility] Address [address] [facility] [place] [address] Phone [phone] Care Team Providers Care Golf Manager Name Role Phone JenniferElijah Abdiel TALBERT Primary Care Provider [phone] Reason for Visit * Reason Comments Follow Up Encounter Details Date Type Department Care Team (Latest Contact Info) Description 04/20/2023 10:30 AM EST Office Visit Cardiology, [facility] [address] [facility] [place] [address] Rosendo Santiago DO [address] [place] [address] Syncope, unspecified syncope type*; Orthostatic hypotension; PSVT (paroxysmal supraventricular tachycardia); Premature atrial complexes; Nonspecific abnormal electrocardiogram (ECG) (EKG) Allergies No known active allergiesdocumented as of this encounter (statuses as of 05/01/2023) Medications Medication Sig Dispensed Refills Start Date [...] the morning. 100 Tablet 4 04/20/2023 Active Fludrocortisone Acetate 0.1 MG Oral Tablet (Florinef) Take 1 Tablet by mouth in the morning. 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 Increased risk for Maturity-onset diabetes of the [...] as of this encounter (statuses as of 05/01/2023) Resolved Problems Problem Noted Date Diagnosed Date [...] as of this encounter (statuses as of 05/01/2023) Immunizations Name Administration Dates Next Due COVID-19 [...] Date Smoking Tobacco: Never Smokeless Tobacco: Never Tobacco Cessation:Counseling Given: Not Answered Alcohol Use Standard Drinks/Week Comments No 0 [...] Sign Reading Time Taken Comments Blood Pressure 108/64 04/20/2023 10:23 AM EST Pulse 80 04/20/2023 10:23 AM EST Temperature - - Respiratory Rate 16 04/20/2023 10:23 AM EST Oxygen Saturation - - Inhaled Oxygen Concentration - - Weight 29.8 kg (65 lb 11.2 oz) 04/20/2023 10:23 AM EST Height - - Body Mass Index 13.27 12/18/2021 3:23 PM EDT documented in this encounter Progress Notes * Rosendo Santiago DO - 04/20/2023 10:14 AM EST SUBJECTIVE: Patient returns today for follow up of paroxysmal supraventricular tachycardia, and recurrent syncope secondary to dysautonomia in the setting of Parkinson's disease and orthostatic hypotension. Evaluated by the undersigned February 20, 2023. Prescribed Florinef due to recurrent syncope. Symptoms have improved. Denies any recurrent syncope over the past 4 weeks. present for today's office visit as usual. Patient denies palpitations, chest discomfort, or unusual shortness of breath.Reports occasional episodes of indigestion in the evening when lying supine. No orthopnea, PND, or lower extremity edema. Tolerating medications listed below. ROS: All others negative other than those noted in the HPI. 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 CLL (chronic lymphocytic leukemia) ([facility]) C91.10 History of vertebral compression fracture Z87.81 History of nonmelanoma skin cancer Z85.828 Stage 3a chronic kidney disease N18.31 Severe protein-calorie malnutrition ([facility]) E43 Genetic risk for diabetes mellitus Z15.89 Paroxysmal atrial fibrillation ([facility]) I48.0 ST elevation myocardial infarction (STEMI) ([facility]) I21.3 Social History Tobacco Use Smoking status: Never Smokeless tobacco: Never Vaping Use Vaping Use: Never used Substance Use Topics Alcohol use: No Drug use: No Review of patient's allergies indicates: No Known Allergies Current Outpatient Medications Medication Sig Dispense Refill [...] mouth in the morning. 34 Tablet 6 No current facility-administered medications for this visit. Lipid Panel Results: Results for orders placed or performed in visit on 10/17/10 LIPID PANEL Result Value Ref Range HOURS FASTING 12 hours Triglycerides 55 <200 mg/dL Cholesterol 226 (H) <200 mg/dL HDL Cholesterol 88 (H) 40 - 59 mg/dL Cholesterol-HDL Ratio 2.6 LDL Cholesterol 127 0 - 129 mg/dL Lab Results Component Value Date/Time TSH - [facility] 3.61 10/21/2010 07:38 AM TSH - [facility] 5.19 (H) 10/17/2010 07:26 AM TSH - [facility] 3.24 12/23/2007 09:51 AM CBC Results: Results for orders placed or performed in visit on 12/04/22 CBC Result Value Ref Range WBC 7.64 4.00 - 10.80 K/uL RBC 3.68 3.85 - 5.15 M/uL HGB 11.0 (L) 12.0 - 15.3 g/dL HCT 35.2 (L) 36.0 - 45.2 % MCV 95.7 81.5 - 97.5 fL MCH 29.9 27.0 - 34.0 pg MCHC 31.3 32.0 - 36.0 g/dL RDW 14.8 11.5 - 15.5 % PLT 295 140 - 400 K/uL MPV 10.4 6.6 - 11.1 fL OBJECTIVE/PHYSICAL EXAMINATION: BP 108/64 (BP Site: Left Arm, BP Position: Sitting, BP Cuff Size: Pediatric) | Pulse 80 | Resp 16 |Wt 29.8 kg (65 lb 11.2 oz) | BMI 13.27 kg/m | BSA 1.11 m General: NAD, AAO x3, frail, underweight. HEENT: Normocephalic. Atraumatic. Conjunctiva pink, no scleral icterus. No carotid bruits, the carotid upstrokes are brisk. No JVD. No HJR Heart: Regular normal S-1 and S-2 no S-3 or S-4 gallop. No murmurs or rubs appreciated. PMI is not displaced. No RV heave. Lungs: Clear bilateral without rales , rhonchi, or wheeze. Abdomen: Normal bowel sounds. Soft. Nontender. No masses or organomegaly. No abdominal bruits. Extremities: No clubbing, cyanosis, or edema. Pulses: radial=2/4, Dorsalis pedis =2/4, posterior tibial=2/4. Neuro: No focal deficits. ASSESSMENT: 1. 87-year-old female with syncope secondary to dysautonomia in the setting of Parkinson's disease and orthostatic hypotension. -symptoms controlled with low-dose Florinef. 2. Paroxysmal supraventricular tachycardia, PACs, possible atrial tachycardia per Zio monitor. -No overt evidence of paroxysmal atrial fibrillation although baseline artifact limits interpretation. -ECG during ER visit 12/2022 demonstrates sinus rhythm with PACs. -asymptomatic 3. Abnormal resting ECG with chronic ST T-wave abnormality dating back to 2004. -no anginal symptoms -preserved LV systolic function without regional wall motion abnormality per echocardiogram 4. Patient is DNR and voices desire to avoid invasive procedures at this time. Requesting conservative management. PLAN: Continue Florinef 0.1 mg daily. Encouraged liberalization of sodium intake and compliance with compression stockings. Zio monitor results reviewed. She remains asymptomatic without palpitations. Continued observation recommended at this time, however, low-dose beta-ella may be considered in the future. Fall precautions advised. All questions answered to satisfaction both the patient and her . Follow Up: Return in about 8 months (around 12/19/2023). I spent a total of 30-39 minutes (exact time 30 mins) on the date of service in preparation, delivery, and documentation of the care provided to Florencio Canseco excluding any time spent in the performance of separately billed services. Rosendo Santiago DO, [facility] Associate Cardiology - Deepti Gilman documented in this encounter Nursing Notes * Brook Hebert CMA - 04/20/2023 10:28 AM EST Examination Room: 11 Name: Florencio Canseco Date of : (1935). Reason for Visit: 6 wk f/u Interim Hospitalization(s): none Problems/Concerns: Reports improvement in sx with Florinef. Denies falls/syncope over the past 3 weeks. Still some lightheadedness. Chest Pain/SOB: denies [facility] Discussed: Not applicable [facility] is a way you can talk to your provider online through e-mail. Would you like to sign up? I can activate it for you? ALREADY ACTIVE Patient was instructed to not get up on the exam table until directed and assisted by their provider; patient is to remain seated in the chair/ wheelchair/ exam table for fall prevention and safety reasons. Patient is aware to have assistance to step down off exam table with personnel. Patient voiced full comprehension of instructions. documented in this encounter Plan of Treatment Upcoming Encounters Date Type Department Care Team (Late st Contact Info) Description 07/10/2023 2:30 PM EDT Office Visit Dermatology [facility] 200 [facility] [place] [address] Ceasar Van MD [address] [place] [address] 07/17/2023 1:20 PM EDT Office Visit Rheumatology [place] [id number] [place] [address] Duane Cantor MD [address] [facility] [place] [address] 10/06/2023 2:00 PM EDT Office Visit Neurology [facility] 200 [facility] [place] [address] Sujatha Foster PA-C [address] [facility] [place] [address] 11/27/2023 1:00 PM EDT Office Visit Family Practice [facility] [place] [address] [facility] [place] [address] Elijah Rodriguez DO [address] [facility] [place], [place] [address] Health Maintenance Due Date Last Done Comments Zoster Vaccines (1 of 2) 07/24/2011 05/29/2011 COVID-19 Vaccine (3 - Moderna risk series) 02/06/2021 01/09/2021, 06/07/2020, 05/07/2020 DXA Scan 06/19/2022 06/19/2020, 03/09, 02/18/2016, Additional history exists DTaP,Tdap,and Td Vaccines (2 - Td or Tdap) 01/11/2023 01/11/2013, 12/20/2002 Albumin/Creatinine Ratio 04/25/2023 04/25/2022 CKD PHOS USE SMARTSET 31483 09/18/202309/06, 05/29/2021, 05/10/2020, Additional history exists Depression Screening 09/18/2023 09/17/2022 CKD HGB USE SMARTSET 73416 12/05/202312/04, 12/04/2022, 12/05/2021, Additional history exists Pneumococcal Vaccine: 65+ Years Completed 10/18/2014, 01/05/2002 VITAMIN D LEVEL ONCE IN A LIFETIME-USE SMARTSET# [id number] Completed 02/14/2022, 08/01/2021, 11/11/2019, Additional history exists [...] as of this encounter Visit Diagnoses Diagnosis Syncope, unspecified syncope type- Primary Orthostatic hypotension PSVT (paroxysmal supraventricular tachycardia) Paroxysmal supraventricular tachycardia Premature atrial complexes Supraventricular premature beats Nonspecific abnormal electrocardiogram (ECG) (EKG) documented in this encounter Care Teams Golf Manager Relationship Specialty Start Date End Date Elijah Rodriguez DO [facility] [place] [address] PCP - General Family Medicine 08/21/20 documented as of this encounter"
--- OUTSIDE RECORDS SUMMARY | 2023-07-26 10:14 | External Medical Summary | Summary of Care ---
Author Name Unknown Organization [facility] Address [address] [place] [address] Phone [phone] Care Team Providers Care Drill Press Operator Name Role Phone Elijah Rodriguez DO Primary Care Provider [phone] Reason for Visit * Reason Comments NEW PATIENT * Evaluate & Treat - Unlimited Visits (Within 30 days (routine)) - Authorized Specialty Diagnoses / Procedures Referred By Duane motta Referred To Contact Cardiovascular Medicine / Cardiology Diagnoses Paroxysmal atrial fibrillation (HCC) Elijah Rodriguez DO [address] [place] [address] Referral ID Status Reason Start Date Expiration Date Visits Requested Visits Authorized [id number] Authorized Specialty Services Required 3 [phone] Encounter Details Date Type Department Care Team (Latest Contact Info) Description 02/20/2023 10:00 AM EST [facility] [address] [facility] [address] Rosendo Santiago DO [address] [facility] [place] [address] 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)*; Paroxysmal atrial fibrillation (HCC); Orthostatic hypotension; Syncope, unspecified syncope type; PSVT (paroxysmal supraventricular tachycardia) Allergies No known active allergiesdocumented as of this encounter (statuses as of 02/20/2023) Medications Medication Sig Dispensed Refills Start Date [...] as of this encounter (statuses as of 02/20/2023) Active Problems Problem Noted Date Diagnosed Date Paroxysmal atrial fibrillation 12/26/2022 ST elevation myocardial infarction (STEMI) 12/26 Genetic risk for diabetes mellitus 06/06/2022 Overview: 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 Increased risk for Maturity-onset diabetes of the [...] as of this encounter (statuses as of 02/20/2023) Resolved Problems Problem Noted Date Diagnosed Date [...] as of this encounter (statuses as of 02/20/2023) Immunizations Name Administration Dates Next Due COVID-19 [...] Sign Reading Time Taken Comments Blood Pressure 98/58 02/20/2023 9:49 AM EST Pulse 82 02/20/2023 9:49 AM EST Temperature - - Respiratory Rate - - Oxygen Saturation - - Inhaled Oxygen Concentration - - Weight 29 kg (64 lb) 02/20/2023 9:49 AM EST Height - - Body Mass Index 12.93 12/18/2021 3:23 PM EDT documented in this encounter Progress Notes * Rosendo Santiago DO - 02/20/2023 10:15 AM EST Cardiology Consultation Reason for consult: Paroxysmal atrial fibrillation Referring physician: Dr. Elijah Rodriguez History of Present Illness: 87 year old female presents for evaluation of possible paroxysmal atrial fibrillation and recent Zio monitor. Evaluated in the emergency department 12/16/22 due to multiple episodes of syncope. ER ECG demonstrates sinus rhythm with frequent PACs. Fainting spells reported while wearing Zio monitor correlate with sinus rhythm and supraventricular ectopy. Blood pressure hypotensive today. Patient and family members report intermittent syncope dating back more than 4 years. Episodes typically occur in the a.m. while standing in the kitchen. Syncopal episodes also reported when changingposition. No significant injuries reported. Denies chest pain or palpitations. No orthopnea, PND, or unusual shortness of breath. Occasional bilateral pedal edema reported by family members. ECG: Sinus rhythm, left ventricular hypertrophy with secondary ST abnormality. Similar ST changes noted on ECGs dating back to 2004. Cardiac Studies: 2D echocardiogram report June 19, 2022: The qualitative LV ejection fraction is 55-59% (normal). The left ventricular cavity size is normal. The LV wall thickness is mildly increased (concentric). No clear cut regional wall motion abormalities. The left ventricular diastolic function is mildly abnormal (grade I). Mild biatrial dilation. Moderate tricuspid regurgitation. Mildly elevated right ventricular systolic pressure. Past Medical History: 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 CLL (chronic lymphocytic leukemia) ([facility]) C91.10 History of vertebral compression fracture Z87.81 History of nonmelanoma skin cancer Z85.828 Stage 3a chronic kidney disease N18.31 Severe protein-calorie malnutrition (HCC) E43 Genetic risk for diabetes mellitus Z15.89 Paroxysmal atrial fibrillation (HCC) I48.0 ST elevation myocardial infarction (STEMI) (HCC) I21.3 Past Surgical History: Procedure Laterality Date COLORECTAL CANCER SCREEN; COLON DILATION AND CURETTAGE (D&C) 2 episodes- 1 after twins miscarraige, one with polyp. MAMMOGRAM - BILATERAL 08/07 MAMMOGRAM - BILATERAL 02/22/03 birad code 2 MISCELLANEOUS ORDER ([facility] ONLY) 06/21/2014 Kyphoplasty L3 MOHS SURG STAGE 10 >5 SLIDE 2013 PAP SCREEN 06/07 REMOVAL OF TONSILS, UNDER AGE 12 Family History: Family History Problem Relation Age of Onset Cancer Mother skin cancer Cancer Brother skin cancer Heart Disorder Father Diabetes Brother Diabetes Mother Heart Disorder Mother Family Status Relation Status Mo at age 89 NM, DM Fa at age 72 Stroke Bro at age 84 NM Bro at age 82 DM Sis Alive Arthritis Juan Alive Son Alive Bro (Not Specified) Bro (Not Specified) Social History: Social History Socioeconomic History Marital status: Spouse name: Stephon Number of children: 2 Years of education: Not on file Highest education level: Not on file Occupational History Occupation: homemaker Tobacco Use Smoking status: Never Smokeless tobacco: Never Vaping Use Vaping Use: Never used Substance and Sexual Activity Alcohol use: No Drug use: No Sexual activity: Not Currently Partners: Male Other Topics Concern Service No Blood Transfusions Yes Comment: with miscarraige- 1962 Caffeine Concern No Comment: mostly decaf Occupational Exposure No Hobby Hazards No Sleep Concern No Stress Concern No Weight Concern No Special Diet No Back Care No Comment: did have a hx Exercise Yes Comment: walks nearly every day- 40 min. Bike Helmet No Comment: does not ride Seat Belt Yes Self-Exams Yes Social History Narrative Not on file Social Determinants of Health Financial Resource Strain: Not on file Food Insecurity: No Food Insecurity (12/08/2018) Hunger Vital Sign Worried About Running Out of Food in the Last Year: Never true Ran Out of Food in the Last Year: Never true Transportation Needs: Not on file Physical Activity: Not on file Stress: Not on file Social Connections: Not on file Intimate Partner Violence: Not on file Housing Stability: Not on file Social History Social History Narrative Not on file ROS: All others negative other than those noted in the HPI. Review of patient's allergies indicates: No Known [...] Mild or Pain, Moderate. 90 Tablet 0 No current facility-administered medications for this visit. OBJECTIVE/PHYSICAL EXAMINATION: BP 98/58 | Pulse 82 | Wt 29 kg (64 lb) | BMI 12.93 kg/m | BSA 1.1 m General: NAD, AAO x3, frail, underweight. [...] =2/4, posterior tibial=2/4. Neuro: No focal deficits. IMPRESSION: 1. 87-year-old female with recurrent syncope most likely secondary to dysautonomia in the setting of Parkinson's disease and orthostatic hypotension. Syncopal episodes correlating with sinus rhythm and supraventricular ectopy on Zio monitor. 2. Paroxysmal supraventricular tachycardia, possible atrial tachycardia per most recent Zio monitor. I do not see overt evidence of paroxysmal atrial fibrillation although baseline artifact limits interpretation. ECG during recent ER visit demonstrates sinus rhythm with PACs. 3. Abnormal resting ECG with chronic ST T-wave abnormality dating back to 2004. -no anginal symptoms -preserved LV systolic function without regional wall motion abnormality per echocardiogram 4. Patient is DNR and voices desire to avoid invasive procedures at this time. Requesting conservative management. RECOMMENDATIONS/PLAN: Basic metabolic panel Compression stocking below knee,18-30 mm hg Ekg Results of Zio monitor reviewed. Patient asymptomatic as it relates to her PSVT. Episodes of syncope occurring during sinus rhythm. Recommend addition of Florinef 0.1 mg daily and addition of compression stockings. Repeat basic metabolic panel in 1 week. Fall precautions recommended. Consider addition of low-dose beta-ella in the future pending clinical response. As noted above, without overt evidence of atrial fibrillation, significant fall risk and frailty, Iwould not recommend addition of anticoagulation at this time. Thank you for allowing me to participate in the care of your patient. We will see her back in 6 to 8 weeks for reassessment. I spent a total of Greater than 55 mins (exact time 56 mins) on the date of service in preparation,delivery, and documentation of the care provided to Florencio Canseco excluding any time spent in theperformance of separately billed services. Rosendo Santiago DO, FACC Associate Cardiology - [facility] documented in this encounter Procedure Notes * Mic Nathan DO - 02/20/2023 9:59 AM ESTAssociated Order(s): EKG REASON FOR STUDY: routine a fib new pt CONCLUSIONS: Normal sinus rhythm Baseline artifact Left ventricular hypertrophy with secondary repolarization abnormality Abnormal ECG No previous ECGs available Ventricular Rate: 83 Atrial Rate: 83 VT Interval: 146 QRS Duration: 68 QT/QTc: 380/446 ms P-R-T [place]: 74 : 88 : 114 degrees documented in this encounter Nursing Notes * Angélica Mcpherson CMA - 02/20/2023 9:47 AM EST Examination Room: 11 Name: Florencio Canseco Date of : (1935) Reason for Visit: a fib Interim Hospitalization(s): ER Problems/Concerns: passes out and gets incoherent when she is in a fib Chest Pain/SOB: denied My [facility] is a way you can [...] 3:00 PM EST Office Visit Family Practice [facility] [address] [place] [address] Elijah Rodriguez, [address] [facility] [place] [address] 07/17/2023 1:20 PM EDT Office Visit Rheumatology [place] [address] [place] [address] Duane Cantor MD [address] [facility] [place] [address] 10/06/2023 2:00 PM EDT Office Visit Neurology [facility] [address] [facility] [place] [address] Sujatha Foster PA-C [address] [facility] [place] [address] Scheduled Orders Name Type Priority Associated Diagnoses Orde r Schedule BASIC METABOLIC PANEL Lab Routine Orthostatic hypotension Syncope, unspecified syncope type Expected: 02/27/2023, Expires: 02/21/2024 Health Maintenance Due Date Last Done Comments Zoster Vaccines (1 of 2) 07/24/2011 05/29/2011 COVID-19 Vaccine (3 - Moderna risk series) 02/06/2021 01/09/2021, 06/07/2020, 05/07/2020 DXA Scan 06/19/2022 06/19/2020, 03/09, 02/18/2016, Additional history exists DTaP,Tdap,and Td Vaccines (2 - Td or Tdap) 01/11/2023 01/11/2013, 12/20/2002 Albumin/Creatinine Ratio 04/25/2023 04/25/2022 CKD PHOS USE SMARTSET 44424 09/18/202309/06, 05/29/2021, 05/10/2020, Additional history exists Depression Screening 09/18/2023 09/17/2022 CKD HGB USE SMARTSET 02330 12/05/202312/04, 12/04/2022, 12/05/2021, Additional history exists Pneumococcal Vaccine: 65+ Years Completed 10/18/2014, 01/05/2002 VITAMIN D LEVEL ONCE IN A LIFETIME-USE SMARTSET# [id number] Completed 02/14/2022, 08/01/2021, 11/11/2019, Additional history exists [...] Procedure Name Priority Date/Time Associated Diagnosis Comments VT ECG ROUTINE ECG W/LEAST 12 LDS W/I&R Routine 02/20/2023 9:59 AM EST Paroxysmal atrial fibrillation (HCC) documented in this encounter Results * EKG (02/20/2023 9:59 AM EST) 02/20/2023 9:59 AM EST Narrative Procedure Note Mic Nathan, - 02/20/2023 9:59 AM EST REASON FOR STUDY: routine a fib new pt CONCLUSIONS: Normal sinus rhythm Baseline artifact Left ventricular hypertrophy with secondary repolarization abnormality Abnormal ECG No previous ECGs available Ventricular Rate: 83 Atrial Rate: 83 VT Interval: 146 QRS Duration: 68 QT/QTc: 380/446 ms P-R-T [place]: 74 : 88 : 114 degrees Rosendo Santiago DO EKG Performing Organization Address City/State/[facility] Co de Phone Number [facility] documented in this encounter Visit Diagnoses Diagnosis 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 [address] PCP - General Family Medicine 08/21/20 documented as of this encounter"
--- OUTSIDE RECORDS SUMMARY | 2023-07-26 10:14 | External Medical Summary ---
Author Name Unknown Address Unknown Organization K01:LABORATORY [facility] [place] - [address] [place] [address] Laboratory Report Ordering Provider Test Date Status ISABELLA NAVARRO 07/10/2023 14:09:28 Final Observation Date Value Abnormality Reference (Units ) Status MYCODE SPECIMEN-SST 07/10/2023 14:09:28 Freezing of extracted DNA, whole blood and/or serum. Final Performing Location LABORATORY [facility] - [address] [place] [address]
--- OUTSIDE RECORDS SUMMARY | 2023-07-26 10:14 | External Medical Summary | Summary of Care ---
Author Name Unknown Organization [facility] Address [address] [facility] [address] Phone [phone] Care Team Providers Care Benefits Director Name Role Phone JenniferElijah Abdiel TALBERT Primary Care Provider [phone] Reason for Visit * Reason Comments Outpatient Testing Encounter Details Date Type Department Care Team (Late st Contact Info) Description 07/10/2023 2:50 PM EDT Laboratory Laboratory [facility] [address] [place] [id number] [facility] [address] [place] [address] [employer] Other*[id number]; Senile osteoporosis Allergies No known active allergiesdocumented as of [...] 06/06/2022 Overview: 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 Increased risk for Maturity-onset diabetes of the [...] 07/10/2023 2:30 PM EDT Office Visit Dermatology [facility] [place] [address] [place] [address] Ceasar Van MD [address] [place] [address] Arrived 07/17/2023 1:20 PM EDT Office Visit Rheumatology [facility] [address] [facility] [place], [place] [address] Duane Cantor MD [address] [facility] [place], [place] [address] 10/06/2023 2:00 PM EDT Office Visit Neurology [facility] [address] [place], [place] [address] Sujatha Foster PA-C [address] [facility] [place], [place] [address] 11/27/2023 1:00 PM EDT Office Visit Family Practice [facility] [address] [place] [address] Elijah Rodriguez DO [address] [facility] [place], [place] [address] Pending Results Name Type Priority Associated Diagnoses Date /Time MYCODE SUBSEQUENT ADULT Lab Routine [employer] Other*[id number] 07/10/2023 2:09 PM EDT COMPREHENSIVE METABOLIC PANEL Lab Routine Senile osteoporosis 07/10/2023 2:09 PM EDT 25-HYDROXY VITAMIN D Lab Routine Senile osteoporosis 07/10/2023 2:09 PM EDT MYCODE SST1 Lab Routine [employer] Other*[id number] 07/10/2023 2:09 PM EDT MYCODE SST2 Lab Routine [employer] Other*[id number] 07/10/2023 2:09 PM EDT Health Maintenance Due Date Last Done Comments Zoster Vaccines (1 of 2) 07/24/2011 05/29/2011 COVID-19 Vaccine (3 - Moderna risk series) 02/06/2021 01/09/2021, 06/07/2020, 05/07/2020 DXA Scan 06/19/2022 06/19/2020, 03/09, 02/18/2016, Additional history exists DTaP,Tdap,and Td Vaccines (2 - Td or Tdap) 01/11/2023 01/11/2013, 12/20/2002 Albumin/Creatinine Ratio 04/25/2023 04/25/2022 CKD PHOS USE SMARTSET 52266 09/18/202309/06, 05/29/2021, 05/10/2020, Additional history exists Depression Screening 09/18/2023 09/17/2022 CKD HGB USE SMARTSET 15073 12/05/202312/04, 12/04/2022, 12/05/2021, Additional history exists Pneumococcal Vaccine: 65+ Years Completed 10/18/2014, 01/05/2002 VITAMIN D LEVEL ONCE IN A LIFETIME-USE SMARTSET# [id number] Completed 02/14/2022, 08/01/2021, 11/11/2019, Additional history exists [...] as of this encounter Visit Diagnoses Diagnosis [employer] Other*[id number] Senile osteoporosis documented in this encounter Care Teams Benefits Director Relationship Specialty Start Date End Date Elijah Rodriguez DO [address] [place] [address] PCP - General Family Medicine 08/21/20 documented as of this encounter
--- OUTSIDE RECORDS SUMMARY | 2023-07-26 10:14 | External Medical Summary ---
Author Name Unknown Address Unknown Organization K09:[facility] - [address] [place] [address] Laboratory Report Ordering Provider Test Date Status TIFFANIE SCHAFFER 07/10/2023 14:09:28 Final Observation Date Value Abnormality Reference (Units ) Status BUN 07/10/2023 14:09:28 47 Above high normal 6-20 (mg/dL) Final Creatinine 07/10/2023 14:09: 1.1 Above high normal 0.5-1.0 (mg/dL) Final Glomerular filtration rate/1.73 sq M.predicted [Volume Rate/Area] in Serum, Plasma or Blood by Creatinine-based formula (CKD-EPI) 07/10/2023 14:09:28 47 Below low normal >=60 (mL/min) Final eGFR is calculated based on the CKD-EPI 2020 equation Sodium 07/10/2023 14:09:28 140 135-146 (m mol/L) Final Potassium 07/10/2023 14:09:28 4.6 3.5-5.1 (m mol/L) Final Cl 07/10/2023 14:09:28 98 98-107 (mm ol/L) Final CO2 07/10/2023 14:09:28 28 22-32 (mmo l/L) Final Anion gap 07/10/2023 14:09:28 14 7-15 (mmol /L) Final Glucose 07/10/2023 14:09:28 129 Above high normal 70 -120 (mg/dL) Final Albumin 07/10/2023 14:09:28 3.9 3.8-5.0 (g /dL) Final AST (Aspartate aminotransferase) 07/10/2023 14:09:28 20 10-35 (U/L) Fin al Alk Phos 07/10/2023 14:09:28 91 35-130 (U/ L) Final Bilirubin, Total 07/10/2023 14:09:28 0.2 <=1 .2 (mg/dL) Final Calcium 07/10/2023 14:09: 9.8 8.4-10.2 ( mg/dL) Final Protein 07/10/2023 14:: 6.8 6.0-8.3 (g /dL) Final ALT (Alanine aminotransferase) 07/10/2023 14::28 7 Below low normal 10-35 (U/L) Final Performing Location [facility] [address] [place] [address]
--- OUTSIDE RECORDS SUMMARY | 2023-07-26 10:14 | External Medical Summary | Summary of Care ---
Author Name Unknown Organization [facility] Address [address] [facility] [place] [address] Phone [phone] Care Team Providers Care Straightener Hand Name Role Phone Nikki Lopez DO Primary Care Provider [phone] Reason for Visit * Reason Onset Date Comments Medication Refill 02/06/2023 Encounter Details Date Type Department Care Team (Late st Contact Info) Description 02/06/2023 Refill [facility] [address] [place] [address] Nikki Lopez DO [address] [place] [address] History of vertebral compression fracture Allergies No known active allergiesdocumented as of this encounter (statuses as of 02/09/2023) Medications Medication Sig Dispensed Refills Start Date [...] Pain, Moderate. 90 Tablet 0 02/09/2023 Active traMADol HCl 50 MG Oral Tablet (Ultram)Indications :History of vertebral compression fracture Take 1 Tablet by mouth every 6 hours as needed for Pain, Mild or Pain, Moderate. 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 Increased risk for Maturity-onset diabetes of the [...] as of this encounter (statuses as of 02/09/2023) Resolved Problems Problem Noted Date Diagnosed Date [...] as of this encounter (statuses as of 02/09/2023) Immunizations Name Administration Dates Next Due COVID-19 mRNA, LNP-s, No Pre serve, 2-Dose Series (Moderna) 06/07/2020,05/07/2020 COVID-19, mRNA, LNP-s, PF, B ooster, 100mcg/0.5mg (Moderna) 01/09/2021 Pneumococcal Conjugate Vacc, 13 Valent (Prevnar) 10/18/2014 SEASONAL INFLUENZA, PF, 6 M & Above, IM , (FLULAVAL or FLUZONE) 12/06/2018,12/02/2017 Season Influenza, Quad, PF, Adjuvanted, 65+ Yrs, IM (FLUAD) 11/11/2019 Seasonal Influenza, Quadriva lent Hd (Fluzone Hd) [...] encounter Miscellaneous Notes * Telephone Encounter - Nikki Lopez DO - 02/09/2023 1:18 PM ESTSigned Prescriptions: Disp Refills traMADol HCl 50 MG Oral Tablet (Ultram) 90 Tab*0 Sig: Take 1 Tablet by mouth every 6 hours as needed for Pain, Mild or Pain, Moderate. Authorizing Provider: NIKKI LOPEZ * Telephone Encounter - Mic Aguilar [facility] - 02/07/2023 2:03 PM ESTPending Prescriptions: Disp Refills traMADol HCl 50 MG Oral Tablet (Ultram) 90 Tab*0 Sig: Take 1 Tablet by mouth every 6 hours as needed for Pain, Mild or Pain, Moderate. * Telephone Encounter - Mic Aguilar [facility] - 02/07/2023 2:03 PM EST I have reviewed the patients controlled substance dispensing history in the Prescription Drug Monitoring Program in compliance with the [facility] regulations before prescribing a controlled substance. PDMP checked on 02/07/2023. Pending Prescriptions: Disp Refills traMADol HCl 50 MG Oral Tablet (Ultram) 90 Tab*0 Sig: Take 1 Tablet by mouth every 6 hours as needed for Pain, Mild or Pain, Moderate. Last Visit: 12/26/2022 (in office), Visit date not found (telemedicine) Next Visit: 04/24/2023 Date medication was last filled: 11/06/22 Date medication is due for refill: 11/28/22 Pharmacy: [id number] [address] [place] [address] Is this request for a controlled substance? Yes and Urine Drug Screen Not completed Toxicology results: No results found for this or any previous visit. Please approve if appropriate. Thank You, Mic Coreas [facility] Clinical Pharmacist [facility] (formerly [facility]) 02/07/2023, 2:03 PM documented in this encounter Plan of Treatment Upcoming Encounters Date Type Department Care Team (Late st Contact Info) Description 02/20/2023 10:00 AM EST Office Visit Cardiology, [facility] [address] [place] [address] Rosendo Santiago, DO [address] [place] [address] 04/24/2023 3:00 PM EST Office Visit Family Practice [facility] [address] [place] [address] Nikki Lopez, DO [address] [facility] [place] [address] 07/17/2023 1:20 PM EDT Office Visit Rheumatology [facility] [address] [place] [address] Duane Cantor MD [address] [place] [address] 10/06/2023 2:00 PM EDT Office Visit Neurology [facility] [address] [place] [address] Sujatha Foster PA-C [address] [facility] [place] [address] Health Maintenance Due Date Last Done Comments Zoster Vaccines (1 of 2) 07/24/2011 05/29/2011 COVID-19 Vaccine (3 - Moderna risk series) 02/06/2021 01/09/2021, 06/07/2020, 05/07/2020 DXA Scan 06/19/2022 06/19/2020, 03/09, 02/18/2016, Additional history exists DTaP,Tdap,and Td Vaccines (2 - Td or Tdap) 01/11/2023 01/11/2013, 12/20/2002 Albumin/Creatinine Ratio 04/25/2023 04/25/2022 CKD PHOS USE SMARTSET 94279 09/18/202309/06, 05/29/2021, 05/10/2020, Additional history exists Depression Screening 09/18/2023 09/17/2022 CKD HGB USE SMARTSET 16109 12/05/202312/04, 12/04/2022, 12/05/2021, Additional history exists Pneumococcal Vaccine: 65+ Years Completed 10/18/2014, 01/05/2002 VITAMIN D LEVEL ONCE IN A LIFETIME-USE SMARTSET# 61613 Completed 02/14/2022, 08/01/2021, 11/11/2019, Additional history exists [...] vertebral compression fracture documented in this encounter Care Teams Straightener Hand Relationship Specialty Start Date End Date Nikki Lopez DO [address] [place] [address] PCP - General Family Medicine 08/21/20 documented as of this encounter
[2023-07-26] MEDS: fentaNYL citrate PF 100 MCG/2 ML VIAL IV STA (10:22)
[2023-07-26] MEDS ORDERED: MIDAZOLAM BOLUS FROM BAG IV PRN (10:23)
[2023-07-26] MEDS ORDERED: fentaNYL BOLUS from BAG IV PRN (10:24)
--- NOTE | 2023-07-26 10:27 | Emergency Department Note ---
Impression & Plan Cardiac arrest, ST elevation MT (STEMI), Respiratory failure, Acute hypotension ED Provider Note NAME: CURTIS GUERRERO AGE: 87 SEX: F : 1935 ARRIVES VIA: Ambulance INFORMANT: Patient ED PROVIDER(S): Gilberto Byrd DO CHIEF COMPLAINT: Cardiac arrest HPI: Patient is a an 87-year-old female who presents the ER for cardiac arrest. She was complaining of chest pain this morning around 7 AM. Patient became unresponsive and CPR was started by family and patient was shocked by police. Upon arrival of EMS Hernandez was obtained very shortly after. She given 2 doses of epinephrine and was transported in following being intubated. Entire history is obtained from son as well as and EMS. ADDITIONAL HISTORY OBTAINED: Per HPI Chronic Medical/Social Conditions Affecting Care: Per HPI PAST MEDICAL HISTORY:See Below PAST SURGICAL HISTORY:See Below FAMILY HISTORY:See Below SOCIAL HISTORY:See Below HOME MEDICATIONS:See Below ALLERGIES:See Below VITALS:See Below PHYSICAL EXAMINATION: GENERAL: Lying in bed unresponsive with ET tube in place EYE EXAM: normal conjunctiva. PERRL and EOM's grossly intact. OROPHARYNX: Dry mucous membrane LUNGS: Clear to auscultation. Normal chest wall mechanics HEART: no murmurs, S1 normal and S2 normal ABDOMEN: abdomen soft, non-tender, normo-active bowel sounds, no masses, no rebound or guarding. UPPER EXTREMITIES: upper extremities are grossly normal. LOWER EXTREMITIES: No pitting edema. NEURO EXAM: GCS 3 T MEDICAL DECISION MAKING: Patient is an 87-year-old female who received medical command call on following a cardiac arrest and CPR and ROSC. EKG showed STEMI. STEMI alert was called. Upon arrival to the ER patient did have pulses. Shortly after arrival she coded. CPR ensued under my direction was performed for close to 15 to 20 minutes. Chief Wharfinger as well as the brace end mainspring former were present at bedside. ROSC was eventually reobtained after multiple rounds of CPR, epinephrine, and bicarb. At this time patient was titrated up on epinephrine drip. She had been given a dose of fentanyl. After discussion with the cinder crew worker as well as interventional list the decision was made that this is likely a nonsurvivable event especially in light of her wishes being a DNR/DNI. Had a protracted conversation with family at bedside and she will be made comfort care. She was admitted to the ICU without any additional escalation of care and will wait for family to present at bedside. Of note she presented to the ER intubated but there was a large cuff leak when I exchanged this tube as it was falling out upon arrival with 7.5 ET tube as described below. Consults/Care Managements Discussions: Per [facility] Triage Nursing notes reviewed. Limited review of prior medical records performed Vital Signs: reviewed and remarkable for no significant abnormalities Differential diagnosis: Cardiac ischemia, aortic dissection, pulmonary embolism, pneumothorax, pneumonia, pericarditis, myocarditis, esophageal rupture, GERD, cholecystitis, pancreatitis, musculoskeletal, as well as other pathologies. ER treatment provided: See below Diagnostics interpreted by me include EKG and cardiac monitoring as listed below: -Cardiac Monitoring: An order was placed for continuous cardiac monitoring. The monitor shows a rate of 80 with AFIB rhythm. -ECG: A-fib rate 80 ST segment elevation in the inferior leads as well as depressions in the high lateral leads septal anterior and lateral leads -Laboratory studies:Interpreted by me as stated above in MDM and shown below. Imaging studies: Xrays: As interpreted by me: Portable AP upright 1 view of the chest shows ET tube in place CTs show: none Procedures: Procedure 1: CPR was performed under my direction for 15 minutes Procedure #2: EM PROCEDURE NOTE - Endotracheal Intubation PROCEDURE NOTE: Informed consent was not obtained by the patient. Verify Correct Patient: yes Procedure: Endotracheal intubation Indication: Respiratory failure The procedure was done emergently. Description of the Procedure: The patient was seen and properly identified. The patient was pre-oxygenated and intubated after rapid sequence induction with meds: None. Intubation was performed using a curved blade and a 7.5 cuffed endotracheal tube. The tube was visualized going through the cords and secured with the 24cm matilde at the lips. The patient had good bilateral breath sounds in the axillae with good chest rise. Proper ET tube placement was confirmed by end tidal CO2 detector. The patient tolerated the procedure well. Critical Care: I have personally spent 125 minutes of critical care time in the direct management of this patient. This includes bedside care, interpretation of diagnostic studies, and testing, discussion with consultants, patient, and family members, and other required patient management activities. This 125 minutes is in excess of all separately billable procedures. Past Med/Surg History Problem List (Updated 07/26/23 @ 13:24 by Gilberto Byrd DO) Acute hypotension (Acute) Respiratory failure (Acute) ST elevation MT (STEMI) (Acute) Cardiac arrest (Acute) DNR (do not resuscitate) Hypocalcemia Hypercapnia with mixed acid-base disorder Anemia Protein-calorie malnutrition, severe Respiratory failure requiring intubation Cardiac arrest with successful resuscitation STEMI (ST elevation myocardial infarction) Encounter for pre-operative examination Burst fracture of lumbar vertebra (Acute) Lumbar compression fracture (Acute) Chronic lymphocytic leukemia (Chronic) Parkinsons disease (Chronic) Osteoporosis (Acute) Medical History (Updated 07/26/23 @ 13:24 by Gilberto Byrd DO) DNR (do not resuscitate) discussion Wheelchair dependent per patient can bear some weight, will need assistance to move Chronic back pain History of skin cancer 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 Hearing deficit Anxiety Surgical History History of right cataract surgery History of lumbar surgery History of colonoscopy History of Mohs micrographic surgery for skin cancer History of detached retina repair left eye Family History Other No family history of adverse response to anesthesia Social History Smoking Status: Smoker, status unknown Second Hand Exposure: No; Do You Dip or Chew Tobacco: No; Hx Alcohol Use: No Hx Substance Use: No Preferred Language: Moldovan Communication Ability: Effective Communication Ability Comment: pt can sign own consents Records Coordinator Required: No Beliefs That Will Affect Care: None Current Living Situation: Spouse Feels Safe at Home: Declines to Answer Assistive Devices: Glasses and Hearing Aid - Bilateral Allergies Allergies Allergy/AdvReac Type Severity Reaction Status Date / Time No Known Allergies Allergy Verified 12/16/22 14:51 Home Meds Home Medications Medication Instructions Recorded Confirmed calcium carbonate (Tums Ultra) 400 mg PO QAM 06/05/22 12/16/22 carbidopa 25 mg-levodopa 100 mg 1 tab PO .6XD 06/05/22 12/16/22 tablet cholecalciferol (vitamin D3) 25 25 mcg PO QAM 06/05/22 12/16/22 mcg (1,000 unit) tablet (Vitamin D3) denosumab 60 mg/mL subcutaneous 60 mg subcut UD 06/05/22 12/16/22 syringe fluticasone propionate 50 2 spray intranasal QAM PRN Nasal 06/05/22 12/16/22 mcg/actuation nasal Congestion spray,suspension food supplemt, lactose-reduced 1 ea PO QDL 06/05/22 12/16/22 multivitamin 1 tab PO QAM 06/05/22 12/16/22 tramadol 50 mg tablet 50 mg PO Q6H PRN Pain 06/05/22 12/16/22 Results & Data (ED) Vital Signs Vital Signs - 24 hr 07/26/23 10:25 07/26/23 10:30 07/26/23 10:32 Pulse Rate 67 110 H Pulse Rate from SpO2 Sensor 141 H Respiratory Rate 14 Blood Pressure 45/29 L Blood Pressure Mean 34 Pulse Oximetry 79 L Fraction of Inspired Oxygen End-Tidal CO2 19 07/26/23 10:34 07/26/23 10:35 07/26/23 10:35 Pulse Rate 103 H Pulse Rate from SpO2 Sensor 139 H 124 H Respiratory Rate 11 L 21 Blood Pressure Blood Pressure Mean 55 Pulse Oximetry 57 L 71 L Fraction of Inspired Oxygen End-Tidal CO2 36 23 07/26/23 10:36 07/26/23 10:38 07/26/23 10:40 Pulse Rate 268 H 173 H 106 H Pulse Rate from SpO2 Sensor 135 H 143 H Respiratory Rate 21 8 L 4 L Blood Pressure Blood Pressure Mean Pulse Oximetry 68 L 66 L Fraction of Inspired Oxygen End-Tidal CO2 22 26 29 07/26/23 10:40 07/26/23 10:42 07/26/23 10:43 Pulse Rate 123 H 121 H Pulse Rate from SpO2 Sensor Respiratory Rate 9 L 6 L Blood Pressure 174/130 H Blood Pressure Mean 140 Pulse Oximetry Fraction of Inspired Oxygen End-Tidal CO2 27 31 07/26/23 10:43 07/26/23 10:44 07/26/23 10:45 Pulse Rate 118 H 109 H Pulse Rate from SpO2 Sensor Respiratory Rate 4 L 4 L Blood Pressure 192/133 H Blood Pressure Mean 155 Pulse Oximetry Fraction of Inspired Oxygen End-Tidal CO2 40 41 07/26/23 10:45 07/26/23 10:46 07/26/23 10:46 Pulse Rate 94 H 87 Pulse Rate from SpO2 Sensor Respiratory Rate 3 L Blood Pressure 108/71 Blood Pressure Mean 92 Pulse Oximetry Fraction of Inspired Oxygen End-Tidal CO2 44 07/26/23 10:48 07/26/23 10:48 07/26/23 10:50 Pulse Rate 94 H 94 H Pulse Rate from SpO2 Sensor Respiratory Rate 4 L 6 L Blood Pressure 151/83 H Blood Pressure Mean 112 Pulse Oximetry Fraction of Inspired Oxygen End-Tidal CO2 44 38 07/26/23 10:50 07/26/23 10:52 07/26/23 10:52 Pulse Rate 113 H Pulse Rate from SpO2 Sensor Respiratory Rate 5 L Blood Pressure 155/104 H 167/112 H Blood Pressure Mean 133 132 Pulse Oximetry Fraction of Inspired Oxygen End-Tidal CO2 37 07/26/23 10:54 07/26/23 10:55 07/26/23 10:55 Pulse Rate 102 H 102 H Pulse Rate from SpO2 Sensor Respiratory Rate 2 L 2 L Blood Pressure 152/97 H Blood Pressure Mean 109 Pulse Oximetry Fraction of Inspired Oxygen End-Tidal CO2 42 45 07/26/23 10:56 07/26/23 10:57 07/26/23 10:57 Pulse Rate 101 H 125 H Pulse Rate from SpO2 Sensor Respiratory Rate 3 L 5 L Blood Pressure 162/109 H Blood Pressure Mean 142 Pulse Oximetry Fraction of Inspired Oxygen End-Tidal CO2 44 41 07/26/23 10:58 07/26/23 11:00 07/26/23 11:00 Pulse Rate 119 H 120 H Pulse Rate from SpO2 Sensor Respiratory Rate 5 L 12 Blood Pressure 159/107 H Blood Pressure Mean 129 Pulse Oximetry Fraction of Inspired Oxygen End-Tidal CO2 48 38 07/26/23 11:02 07/26/23 11:02 07/26/23 11:04 Pulse Rate 119 H 99 H Pulse Rate from SpO2 Sensor Respiratory Rate 12 12 Blood Pressure 176/102 H Blood Pressure Mean 141 Pulse Oximetry Fraction of Inspired Oxygen End-Tidal CO2 36 36 07/26/23 11:05 07/26/23 11:05 07/26/23 11:06 Pulse Rate Pulse Rate from SpO2 Sensor Respiratory Rate 12 12 Blood Pressure 166/105 H Blood Pressure Mean 120 Pulse Oximetry Fraction of Inspired Oxygen End-Tidal CO2 34 35 07/26/23 11:15 Pulse Rate 105 H Pulse Rate from SpO2 Sensor Respiratory Rate 16 Blood Pressure Blood Pressure Mean Pulse Oximetry 94 Fraction of Inspired Oxygen 100 End-Tidal CO2 24 Laboratory Data 07/26/23 10:16 07/26/23 10:16 Lab Results 07/26/23 07/26/23 Range/Units 10:16 10:17 WBC 10.53 (4.8-10.8) K/ul RBC 3.17 L (4.20-5.40) M/uL Hgb 8.8 L (12.0-16.0) g/dl POC Hgb 8.8 L (12.0-16.0) g/dl Hct 30.0 L (37.0-47.0) % POC Hct 26 L (37-47) % MCV 94.6 (80.0-100.0) fL MCH 27.8 (25.0-34.0) pg MCHC 29.3 L (32.0-36.0) g/dL RDW Std Deviation 52.8 H (36.4-46.3) fL RDW Coeff of Bert 15.3 H (11.5-14.5) % Plt Count 246 (130-400) K/uL MPV 10.5 (9.4-12.4) fL Immature Gran % (Auto) 1.9 % Neut % (Auto) 57.8 % Lymph % (Auto) 36.6 % Burke % (Auto) 3.2 % Eos % (Auto) 0.2 % Baso % (Auto) 0.3 % Neut # (Auto) 6.09 (1.40-6.50) K/uL Lymph # (Auto) 3.85 H (1.20-3.40) K/uL Burke # (Auto) 0.34 (0.11-0.59) K/uL Eos # (Auto) 0.02 (0.00-0.50) K/uL Baso # (Auto) 0.03 (0.00-0.20) K/uL Immature Gran # (Auto) 0.20 (0.01-0.20) K/uL VBG pH 7.12 L (7.36-7.41) VBG pCO2 62 H (38-50) mmHg VBG pO2 30 mmHg VBG HCO3 20 mmol/L VBG O2 Saturation < 60.0 % VBG Base Excess -9.1 mEq/L POC Sodium 140 (135-144) mmol/L Sodium 139 (136-145) mmol/L POC Potassium 3.7 (3.3-5.0) mmol/L Potassium 3.9 (3.5-5.1) mmol/L POC Chloride 105 (101-112) mmol/L Chloride 109 H (98-107) mmol/L Carbon Dioxide 19 L (21-32) mmol/L POC Total CO2 20 L (24-31) mmol/L Anion Gap 11 (3-11) POC Anion Gap 19.0 (16-25) mmol/L POC BUN 40 H (7-18) mg/dl BUN 47 H (6-23) mg/dl Creatinine 1.19 (0.6-1.2) mg/dl POC Creatinine 1.3 (0.6-1.3) mg/dl Est Cr Clr Drug Dosing Not Reportable Est GFR ( Amer) 47.5 ml/min Est GFR (Non-Af Amer) 41.0 ml/min BUN/Creatinine Ratio 39.5 H (10-20) Glucose 180 H (70-99(Fasting)) mg/dl POC Glucose (other) 173 H (70-99) mg/dl Calcium 7.8 L (8.6-10.3) mg/dl POC Ioniz Calcium Tana 1.07 L (1.12-1.32) mmol/l Total Bilirubin 0.4 (0.2-1.0) mg/dl AST 204 H (13-39) U/L ALT 17 (7-52) U/L Alkaline Phosphatase 53 (34-104) U/L Troponin I High Sens 161.4 H* (0-14) pg/ml Total Protein 4.9 L (6.0-8.3) gm/dl Albumin 2.8 L (3.4-5.0) gm/dl Globulin 2.1 L (2.5-4.0) gm/dl Albumin/Globulin Ratio 1.3 (0.9-2) Lipase 8 L (11-82) U/L Administered Medications Epinephrine HCl () 4 mg in 254 mls @ 2.85 mls/hr IV .Q24H [facility]; Protocol Stop: 08/25/23 11:29 Last Titration: 07/26/23 13:09 Dose: Infused Documented By: Titration: 07/26/23 11:45 Dose: 0 mcg/kg/min, 0 mls/hr Documented By: Titration: 07/26/23 11:40 Dose: 0.09 mcg/kg/min, 12.8 mls/hr Documented By: Admin: 07/26/23 11:39 Dose: 0.02 mcg/kg/min, 2.9 mls/hr Documented By: RODRICK Co-signed By: BARBARA Midazolam HCl (Versed) 125 mg in 250 mls @ 2 mls/hr IV .Q96H [facility]; Protocol Stop: 08/25/23 10:29 Last Admin: 07/26/23 13:14 Dose: Not Given Documented By: LESTER Fentanyl Citrate (Fentanyl Citrate) 2,500 mcg in 250 mls @ 2.5 mls/hr IV .Q96H [facility]; Protocol Stop: 08/09/23 10:29 Last Admin: 07/26/23 13:14 Dose: Not Given Documented By: LESTER Miscellaneous (Icu Protocol For Hyperglycemia) 1 each N/A ACHS [facility] Stop: 07/28/23 11:29 Last Admin: 07/26/23 13:14 Dose: Not Given Documented By: LESTER Discontinued Medications Amiodarone HCl/Dextrose (Amiodarone 150mg / 100ml D5w) Confirm Administered Dose 150 mg IV .STK-MED ONE Stop: 07/26/23 10:12 Last Admin: 07/26/23 10:12 Dose: 150 mg Documented By: RODRICK Co-signed By: BARBARA Atropine Sulfate (Atropine Sulfate 0.1 Mg/Ml 5ml Syr) Confirm Administered Dose 0.5 mg IV .STK-MED ONE Stop: 07/26/23 10:49 Last Admin: 07/26/23 12:10 Dose: Not Given Documented By: LESTER Epinephrine HCl (Epinephrine 1.5" Ndl 0.1 Mg/Ml Syr) Confirm Administered Dose 1 mg IV .STK-MED ONE Stop: 07/26/23 10:19 Last Admin: 07/26/23 11:59 Dose: Not Given Documented By: LESTER Fentanyl Citrate (Fentanyl Citrate Pf 100 Mcg/2 Ml Vial) Confirm Administered Dose 100 mcg .ROUTE .STK-MED ONE Stop: 07/26/23 10:18 Last Admin: 07/26/23 11:59 Dose: Not Given Documented By: LESTER Fentanyl Citrate (Fentanyl Citrate Pf 100 Mcg/2 Ml Vial) Confirm Administered Dose 100 mcg .ROUTE .STK-MED ONE Stop: 07/26/23 10:20 Last Admin: 07/26/23 11:59 Dose: Not Given Documented By: LESTER Fentanyl Citrate (Fentanyl Citrate Pf 100 Mcg/2 Ml Vial) 40 mcg IV NOW STA Stop: 07/26/23 10:23 Last Admin: 07/26/23 10:22 Dose: 40 mcg Documented By: RODRICK Heparin Sodium (Porcine) (Heparin (Porcine) 1000 Unit/Ml 10 Ml (Street Car Inspector Use Only)) Confirm Administered Dose 10,000 units .ROUTE .STK-MED ONE Stop: 07/26/23 10:20 Last Admin: 07/26/23 11:59 Dose: Not Given Documented By: LESTER Heparin Sodium/Sodium Chloride (Heparin In Nss Infusion 1000 Unit/500 Ml (2 U/Ml) Bag) Confirm Administered Dose 3,000 units IV .STK-MED ONE Stop: 07/26/23 10:20 Last Admin: 07/26/23 11:59 Dose: Not Given Documented By: LESTER Ioversol (Optiray 350) Confirm Administered Dose 1 ml .ROUTE .STK-MED ONE Stop: 07/26/23 10:22 Last Admin: 07/26/23 12:00 Dose: Not Given Documented By: LESTER Lidocaine HCl (Lidocaine 1% Local 20 Ml Vial) Confirm Administered Dose 80 ml .ROUTE .STK-MED ONE Stop: 07/26/23 10:30 Last Admin: 07/26/23 12:02 Dose: Not Given Documented By: LESTER Midazolam HCl (Midazolam Hcl 1 Mg/Ml 2ml Vial) Confirm Administered Dose 2 mg .ROUTE .STK-MED ONE Stop: 07/26/23 10:20 Last Admin: 07/26/23 12:00 Dose: Not Given Documented By: LESTER Solomonaneous (Stat Iv Infusion Titration Per Protocol) 1 each N/A NOW STA Stop: 07/26/23 10:24 Last Admin: 07/26/23 12:10 Dose: Not Given Documented By: LESTER Solomonaneous (Stat Iv Infusion Titration Per Protocol) 1 each N/A NOW STA Stop: 07/26/23 10:24 Last Admin: 07/26/23 12:09 Dose: Not Given Documented By: WRS Miscellaneous (Stat Iv Infusion Titration Per Protocol) 1 each N/A NOW STA Stop: 07/26/23 10:25 Last Admin: 07/26/23 12:09 Dose: Not Given Documented By: LESTER Nicardipine HCl (Nicardipine Hcl Inj 2.5 Mg/Ml 10 Ml Amp) Confirm Administered Dose 25 mg .ROUTE .STK-MED ONE Stop: 07/26/23 10:20 Last Admin: 07/26/23 12:00 Dose: Not Given Documented By: LESTER Nitroglycerin/Dextrose (Nitroglycerin/D5w 100mcg/Ml 20ml Syr) Confirm Administered Dose 2,000 mcg .ROUTE .STcashcloud-MED ONE Stop: 07/26/23 10:21 Last Admin: 07/26/23 12:00 Dose: Not Given Documented By: LESTER Norepinephrine Bitartrate (Norepinephrine/D5w 4 Mg/250 Ml) Confirm Administered Dose 4 mg IV .GameMix-Conductiv ONE Stop: 07/26/23 10:23 Last Admin: 07/26/23 12:01 Dose: Not Given Documented By: LESTER Rocuronium [place] (Rocuronium [place] 10 Mg/Ml 5 Ml Vial) Confirm Administered Dose 50 mg IV .GameMix-Conductiv ONE Stop: 07/26/23 10:21 Last Admin: 07/26/23 10:30 Dose: 50 mg Documented By: RODRICK Co-signed By: BARBARA Imaging Data Radiologist's Impression: Chest X-Ray 07/26/23 10:02 XR chest 1V portable HISTORY: 87 years-old Female Chest pain, nonspecific COMPARISON: 12/16/2022 TECHNIQUE: AP supine view of the chest FINDINGS: Cardiac silhouette is enlarged. Endotracheal tube overlies the midline, 3.1 cm superior to the enrique. Pulmonary vascular congestion with new ill-defined right midlung opacities. Hyperinflation. Hiatal hernia. Chronic interstitial coarsening with hyperinflation. No change of the shoulders and spine. IMPRESSION: 1. Endotracheal tube overlies the midline, 3.1 cm superior to the enrique. 2. Ill-defined right midlung opacities are suspicious for pneumonia. ACT 112: Negative or not required by law. The above report was generated using voice recognition software. It may contain grammatical, syntax or spelling errors. Electronically signed by: Andrea Noe M.D. 07/26/2023 10:48 AM Discharge Plan Visit Data Chief Complaint: Heart Alert ED Provider: Gilberto Byrd Discharge Problem: Cardiac arrest, ST elevation MT (STEMI), Respiratory failure, Acute hypotension Patient Disposition: Admitted As Inpatient Discharge Instructions Interventions: ED Discharge Assessment Last Done: 07/26/23 11:15 Discharge Problem: ST elevation MT (STEMI) Qualifiers: Involved coronary artery: unspecified coronary artery Qualified Code(s): I21.3 - ST elevation (STEMI) myocardial infarction of unspecified site Respiratory failure Qualifiers: Chronicity: acute Respiratory failure complication: unspecified whether with hypoxia or hypercapnia Qualified Code(s): J96.00 - Acute respiratory failure, unspecified whether with hypoxia or hypercapnia
[2023-07-26 10:28] LABS: Base Excess VBG -9.1 mEq/L; HCO3 VBG 20 mmol/L; Oxygen Saturation VBG < 60.0 %; PCO2 VBG 62 mmHg (38-50); PO2 VBG 30 mmHg; pH VBG 7.12 (7.36-7.41)
[2023-07-26] MEDS: ROCURONIUM BROMIDE 10 MG/ML 5 ML VIAL IV ONE (10:30)
[2023-07-26 10:32] LABS: iSTAT Creatinine 1.3 mg/dl (0.6-1.3); iSTAT Hemoglobin 8.8 g/dl (12.0-16.0); iSTAT Ionized Calcium 1.07 mmol/l (1.12-1.32); iSTAT Potassium 3.7 mmol/L (3.3-5.0)
[2023-07-26 10:38] LABS: Basophils # (auto) 0.03 K/uL (0.00-0.20); Basophils % (auto) 0.3 %; Eosinophils # (auto) 0.02 K/uL (0.00-0.50); Eosinophils % (auto) 0.2 %; Hemoglobin 8.8 g/dl (12.0-16.0); Immature Granulocytes % (auto) 1.9 %; Lymphocytes # (auto) 3.85 K/uL (1.20-3.40); Lymphocytes % (auto) 36.6 %; Mean Corpuscular Hemoglobin 27.8 pg (25.0-34.0); Mean Corpuscular Hgb Conc 29.3 g/dL (32.0-36.0); Mean Corpuscular Volume 94.6 fL (80.0-100.0); Mean Platelet Volume 10.5 fL (9.4-12.4); Monocytes # (auto) 0.34 K/uL (0.11-0.59); Monocytes % (auto) 3.2 %; Neutrophils # (auto) 6.09 K/uL (1.40-6.50); Neutrophils % (auto) 57.8 %; Platelet Count 246 K/uL (130-400); RDW Coefficient of Variation 15.3 % (11.5-14.5); RDW Standard Deviation 52.8 fL (36.4-46.3); Red Blood Count 3.17 M/uL (4.20-5.40); White Blood Count 10.53 K/ul (4.8-10.8)
--- NOTE | 2023-07-26 10:50 | XRay Report ---
XR chest 1V portable HISTORY: 87 years-old Female Chest pain, nonspecific COMPARISON: 12/16/2022 TECHNIQUE: AP supine view of the chest FINDINGS: Cardiac silhouette is enlarged. Endotracheal tube overlies the midline, 3.1 cm superior to the enrique . Pulmonary vascular congestion with new ill-defined right midlung opacities. Hyperinflation. Hiatal hernia. Chronic interstitial coarsening with hyperinflation. No change of the shoulders and spine. IMPRESSION: 1. Endotracheal tube overlies the midline, 3.1 cm superior to the enrique. 2. Ill-defined right midlung opacities are suspicious for pneumonia. ACT 112: Negative or not required by law. The above report was generated using voice recognition software. It may contain grammatical, syntax o r spelling errors. Electronically signed by: Andrea Noe M.D. 07/26/2023 10:48 AM
[2023-07-26 11:20] LABS: Albumin Level 2.8 gm/dl (3.4-5.0); Anion Gap 11 (3-11); Bilirubin,Total 0.4 mg/dl (0.2-1.0); Calcium 7.8 mg/dl (8.6-10.3); Carbon Dioxide 19 mmol/L (21-32); Chloride 109 mmol/L (98-107); Potassium 3.9 mmol/L (3.5-5.1); Sodium 139 mmol/L (136-145)
[2023-07-26] MEDS ORDERED: ONDANSETRON 4 MG OD TAB SL PRN (11:21)
[2023-07-26] MEDS ORDERED: ONDANSETRON INJ 2 MG/ML 2 ML VIAL IV PRN (11:21)
[2023-07-26] MEDS ORDERED: LORazepam 0.5 MG in SYRINGE 0.25 ML IV PRN (11:21)
[2023-07-26] MEDS ORDERED: LORazepam 0.5 MG TAB PO PRN (11:21)
--- NOTE | 2023-07-26 11:25 | History & Physical Report ---
Date of Service July 26, 2023 Assessment & Plan (1) STEMI (ST elevation myocardial infarction): Plan: Reason Critically Ill: 87-year-old female previously DNR with cardiac arrest secondary to ST elevation SD PLAN: Neuro: Parkinson's disease -Wheelchair-bound at baseline Resp: Hypercapnic respiratory failure -Plan compassionate extubation when daughter arrives at bedside CV: Cardiogenic shock secondary to ST elevation SD Recurrent episodes of ventricular tachycardia -Epinephrine infusion to facilitate arrival of family at bedside Fluids/Renal: Mixed acid-base disorder: Metabolic and respiratory GI/Nutrition: Severe protein calorie malnutrition at baseline Heme: Anemia NOS -Documentation/medical records indicate chronic lymphocytic leukemia Vascular access: Peripheral IVs Code Status: DNR, comfort measures only, expectant management Disposition: ICU 1245: Patient's daughter arrived from [employer]. Patient's son contacted granddaughter who desired to be present. All family present now at bedside. Patient entered ventricular tachycardia, patient was compassionately extubated. No evidence of discomfort. 1300: Patient ceased to breathe asystole on the monitor no palpable pulse. Family grieving at bedside. (2) Cardiac arrest with successful resuscitation: (3) Respiratory failure requiring intubation: (4) Parkinsons disease: (5) Protein-calorie malnutrition, severe: (6) Anemia: (7) Hypercapnia with mixed acid-base disorder: (8) Hypocalcemia: (9) DNR (do not resuscitate): History of Present Illness Chief Complaint: Chest pain Primary Care Provider: Elijah Rodriguez DO Patient is an 87-year-old female who presented to the emergency department for chest pain. History is obtained from prior records as patient was intubated prior to my evaluation. Briefly the patient was complaining of chest pain since 7 AM and refused transport to the hospital. She eventually lost responsiveness and CPR was started by family and continued by EMS. She had been intubated prior to hospital arrival. In the emergency department she had recurrent loss of spontaneous circulation and required multiple cardioversions. There was return of spontaneous circulation, she was evaluated at the bedside by interventional cardiology and felt she was largely unstable and needed further aggressive resuscitative measures. concomitantly, emergency department spoke with family: and son they report patient had previously engaged to DO NOT RESUSCITATE order. Family was brought to the bedside and explained the gravity of the situation. Given perfect scenario the patient would most likely not be able to live independently, she has advanced Parkinson's disease. The son and agreed that continuing life-sustaining efforts would not be in line with patient's wishes. There is a daughter who should be presenting to the bedside shortly they contacted her approximately 1 hour ago when she is traveling from her she emergently. We will continue supratherapeutic vasoactive medications to allow family to present to bedside and then plan for c ompassionate extubation and discontinuation of life-sustaining measures. Allergies Allergy/AdvReac Type Severity Reaction Status Date / Time No Known Allergies Allergy Verified 12/16/22 14:51 Home Medications Medication Instructions Recorded Confirmed Type calcium carbonate (Tums Ultra) 400 mg PO QAM 06/05/22 12/16/22 History carbidopa 25 mg-levodopa 100 mg 1 tab PO .6XD 06/05/22 12/16/22 History tablet cholecalciferol (vitamin D3) 25 25 mcg PO QAM 06/05/22 12/16/22 History mcg (1,000 unit) tablet (Vitamin D3) denosumab 60 mg/mL subcutaneous 60 mg subcut UD 06/05/22 12/16/22 History syringe fluticasone propionate 50 2 spray intranasal QAM PRN Nasal 06/05/22 12/16/22 History mcg/actuation nasal Congestion spray,suspension food supplemt, lactose-reduced 1 ea PO QDL 06/05/22 12/16/22 History multivitamin 1 tab PO QAM 06/05/22 12/16/22 History tramadol 50 mg tablet 50 mg PO Q6H PRN Pain 06/05/22 12/16/22 History Past Med/Surg History Problem List (Updated 07/26/23 @ 11:24 by Duane Boles DO) DNR (do not resuscitate) Hypocalcemia Hypercapnia with mixed acid-base disorder Anemia Protein-calorie malnutrition, severe Respiratory failure requiring intubation Cardiac arrest with successful resuscitation STEMI (ST elevation myocardial infarction) Encounter for pre-operative examination Burst fracture of lumbar vertebra (Acute) Lumbar compression fracture (Acute) Chronic lymphocytic leukemia (Chronic) Parkinsons disease (Chronic) Osteoporosis (Acute) Medical History (Updated 07/26/23 @ 11:24 by Duane Boles DO) DNR (do not resuscitate) discussion Wheelchair dependent per patient can bear some weight, will need assistance to move Chronic back pain History of skin cancer 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 Hearing deficit Anxiety Surgical History History of right cataract surgery History of lumbar surgery History of colonoscopy History of Mohs micrographic surgery for skin cancer History of detached retina repair left eye Family History Other No family history of adverse response to anesthesia Social History Smoking Status: Smoker, status unknown Second Hand Exposure: No; Do You Dip or Chew Tobacco: No; Hx Alcohol Use: No Hx Substance Use: No Preferred Language: Croatian Communication Ability: Effective Communication Ability Comment: pt can sign own consents Collections Technician Required: No Beliefs That Will Affect Care: None Current Living Situation: Spouse Feels Safe at Home: Declines to Answer Assistive Devices: Glasses and Hearing Aid - Bilateral Review of Systems Review of Systems: Unobtainable due to endotracheal tube Physical Exam Physical Exam: General: Sedated. nontoxic. Frail, Skin: Warm, dry, pale, Head: Atraumatic Ears, nose, mouth and throat: airway obscured by endotracheal tube Cardiovascular: Acrocyanosis with poor capillary refill and weak central pulses Respiratory: Ventilator settings reviewed Gastrointestinal: Non distended Musculoskeletal: No deformity, Results & Data Results & Data Vital Signs (Past 12 Hours) Vital Signs Pulse 07/26/23 10:25 67 Critical Care Results & Data Vital Signs (Past 12 Hours) Vital Signs Pulse 07/26/23 10:46 94 H 07/26/23 10:25 67 Lab & Micro Results (Past 24 Hours) RBC 3.17 M/uL (4.20-5.40) L 07/26/23 WBC 10.53 K/ul (4.8-10.8) 07/26/23 Hgb 8.8 g/dl (12.0-16.0) L 07/26/23 Hct 30.0 % (37.0-47.0) L 07/26/23 MCV 94.6 fL (80.0-100.0) 07/26/23 MCH 27.8 pg (25.0-34.0) 07/26/23 MCHC 29.3 g/dL (32.0-36.0) L 07/26/23 RDW Standard Deviation 52.8 fL (36.4-46.3) H 07/26/23 RDW Coefficient of Variation 15.3 % (11.5-14.5) H 07/26/23 Plt Count 246 K/uL (130-400) 07/26/23 MPV 10.5 fL (9.4-12.4) 07/26/23 Neutrophils (%) (Auto) 57.8 % 07/26/23 Lymphocytes (%) (Auto) 36.6 % 07/26/23 Monocytes # (Auto) 0.34 K/uL (0.11-0.59) 07/26/23 Eosinophils # (Auto) 0.02 K/uL (0.00-0.50) 07/26/23 Immature Granulocyte % (Auto) 1.9 % 07/26/23 Neutrophils # (Auto) 6.09 K/uL (1.40-6.50) 07/26/23 Lymphocytes # (Auto) 3.85 K/uL (1.20-3.40) H 07/26/23 Monocytes # (Auto) 0.34 K/uL (0.11-0.59) 07/26/23 Eosinophils # (Auto) 0.02 K/uL (0.00-0.50) 07/26/23 Basophils # (Auto) 0.03 K/uL (0.00-0.20) 07/26/23 Immature Granulocyte # (Auto) 0.20 K/uL (0.01-0.20) 4 Na 139 mmol/L (136-145) 07/26/23 K 3.9 mmol/L (3.5-5.1) 07/26/23 Cl 109 mmol/L (98-107) H 07/26/23 CO2 19 mmol/L (21-32) L 07/26/23 Anion Gap 11 (3-11) 07/26/23 BUN 47 mg/dl (6-23) H 07/26/23 Creatinine 1.19 mg/dl (0.6-1.2) 07/26/23 Estimated GFR ( Amer) 47.5 ml/min 07/26/23 Estimated GFR (Non-Af Amer) 41.0 ml/min 07/26/23 BUN/Creatinine Ratio 39.5 (10-20) H 07/26/23 Glu 180 mg/dl (70-99(Fasting)) H 07/26/23 Ca 7.8 mg/dl (8.6-10.3) L 07/26/23 Total Bilirubin 0.4 mg/dl (0.2-1.0) 07/26/23 AST 204 U/L (13-39) H 07/26/23 ALT 17 U/L (7-52) 07/26/23 Alkaline Phosphatase 53 U/L (34-104) 07/26/23 TP 4.9 gm/dl (6.0-8.3) L 07/26/23 Albumin 2.8 gm/dl (3.4-5.0) L 07/26/23 Globulin 2.1 gm/dl (2.5-4.0) L 07/26/23 Albumin/Globulin Ratio 1.3 (0.9-2) 07/26/23 Calcium Level 7.8 mg/dl (8.6-10.3) L 07/26/23 10:16 Venous Blood pH 7.12 (7.36-7.41) L 07/26/23 10:16 Venous Blood Partial Pressure CO2 62 mmHg (38-50) H 07/26/23 10 :16 Venous Blood Partial Pressure O2 30 mmHg 07/26/23 10:16 Venous Blood HCO3 20 mmol/L 07/26/23 10:16 Venous Blood Base Excess -9.1 mEq/L 07/26/23 10:16 Venous Blood Oxygen Saturation < 60.0 % 07/26/23 10:16 Diagnostic Findings (Past 24 Hours) Chest X-Ray 07/26/23 10:02 XR chest 1V portable HISTORY: 87 years-old Female Chest pain, nonspecific COMPARISON: 12/16/2022 TECHNIQUE: AP supine view of the chest FINDINGS: Cardiac silhouette is enlarged. Endotracheal tube overlies the midline, 3.1 cm superior to the enrique. Pulmonary vascular congestion with new ill-defined right midlung opacities. Hyperinflation. Hiatal hernia. Chronic interstitial coarsening with hyperinflation. No change of the shoulders and spine. IMPRESSION: 1. Endotracheal tube overlies the midline, 3.1 cm superior to the enrique. 2. Ill-defined right midlung opacities are suspicious for pneumonia. ACT 112: Negative or not required by law. The above report was generated using voice recognition software. It may contain grammatical, syntax or spelling errors. Electronically signed by: Andrea Noe M.D. 07/26/2023 10:48 AM ECG Additional Comments: Prehospital EKG consistent with acute ST elevation SD Code Status & VTE Plan Code Status DO NOT RESUSCITATE, no escalation of care, admitting for comfort measures. VTE Prophylaxis Plan VTE Prophylaxis will be ordered: Yes Supervising Physician Co-Signing Physician Notes I have personally spent 90 minutes of critical care time in the direct management of this patient. This is a life/limb threatening event. This includes time spent evaluating patient, direct bedside care, chart review, placing orders, interpretation of diagnostic studies, discussion with consultants, patient, and/or family members regarding treatment decisions, as well as other required patient management activities. This time is exclusive of all separately billable procedures, and teaching time and separate from and in addition to any other critical care service time. PG Care Time/CCT Total # of Minutes Spent Total Time Spent with Patient: Total time spent is greater than 50% in coordination of care (as documented) at patient's floor/unit and/or counseling patient: 90 Coding Level of Care Code None Diagnoses STEMI (ST elevation myocardial infarction) I21.3 Cardiac arrest with successful resuscitation I46.9 Respiratory failure requiring intubation J96.90 Parkinson's disease, unspecified whether dyskinesia present, unspecified whether manifestations fluctuate G20.A1 Dyskinesia presence: unspecified whether dyskinesia Fluctuating manifestations: unspecified whether manifestations fluctuate Protein-calorie malnutrition, severe E43 Anemia, unspecified type D64.9 Anemia type: unspecified type Hypercapnia with mixed acid-base disorder E87.4 Hypocalcemia E83.51 DNR (do not resuscitate) Z66 Comment [id number] x 1 [id number] x 2 (4) Parkinsons disease Dyskinesia presence: unspecified whether dyskinesia Fluctuating manifestations: unspecified whether manifestations fluctuate Qualified Code(s): G20.A1 - Parkinson's disease without dyskinesia, without mention of fluctuations (6) Anemia Anemia type: unspecified type Qualified Code(s): D64.9 - Anemia, unspecified
[2023-07-26 11:26] LABS: Alanine Aminotransferase 17 U/L (7-52); Albumin Globulin Ratio 1.3 (0.9-2); Alkaline Phosphatase 53 U/L (34-104); Aspartate Aminotransferase 204 U/L (13-39); BUN Creatinine Ratio 39.5 (10-20); Blood Urea Nitrogen 47 mg/dl (6-23); Est GFR (African American) 47.5 ml/min; Globulin 2.1 gm/dl (2.5-4.0); Glucose 180 mg/dl (70-99(Fasting)); Lipase 8 U/L (11-82); Total Protein 4.9 gm/dl (6.0-8.3)
[2023-07-26] MEDS: EPINEPHrine/NSS 4 MG/254 ML BAG IV SCH (11:39)
[2023-07-26] MEDS: HEPARIN (PORCINE) 1000 UNIT/ML 10 ML (CATH LAB USE ONLY) ONE (11:59)
[2023-07-26] MEDS: fentaNYL citrate PF 100 MCG/2 ML VIAL ONE ×2 (11:59)
[2023-07-26] MEDS: OPTIRAY 350 ONE (12:00)
[2023-07-26] MEDS: niCARdipine HCL INJ 2.5 MG/ML 10 ML AMP ONE (12:00)
[2023-07-26] MEDS: NITROGLYCERIN/D5W 100MCG/ML 20ML SYR ONE (12:00)
[2023-07-26] MEDS: MIDAZOLAM HCL 1 MG/ML 2ML VIAL ONE (12:00)
[2023-07-26] MEDS: NOREPINEPHRINE/D5W 4 MG/250 ML IV ONE (12:01)
[2023-07-26] MEDS: LIDOCAINE 1% LOCAL 20 ML VIAL ONE (12:02)
[2023-07-26 12:06] LABS: Troponin I High Sensitivity 161.4 pg/ml (0-14)
[2023-07-26] MEDS: STAT IV Infusion **Titration per Protocol STA ×3 (12:09→12:10)
[2023-07-26] MEDS: ATROPINE SULFATE 0.1 MG/ML 5ML SYR IV ONE (12:10)
--- NOTE | 2023-07-26 13:08 | Discharge Summary ---
Date of Service July 26, 2023 Admission HPI Per Admitting Provider Patient is an 87-year-old female who presented to the emergency department for chest pain. History is obtained from prior records as patient was intubated prior to my evaluation. Briefly the patient was complaining of chest pain since 7 AM and refused transport to the hospital. She eventually lost responsiveness and CPR was started by family and continued by EMS. She had been intubated prior to hospital arrival. In the emergency department she had recurrent loss of spontaneous circulation and required multiple cardioversions. There was return of spontaneous circulation, she was evaluated at the bedside by in terventional cardiology and felt she was largely unstable and needed further aggressive resuscitative measures. concomitantly, emergency department spoke with family: and son they report patient had previously engaged to DO NOT RESUSCITATE order. Family was brought to the bedside and explained the gravity of the situation. Given scenario the patient would most likely not be able to live independently, she has advanced Parkinson's disease. The son and agreed that continuing life-sustaining efforts would not be in line with patient's wishes. Patient was admitted to the ICU on vasoactive medication to allow family to present to bedside. Patient's blood pressure marginally stabilized necessitating removal of the medications. Family presented to the bedside at approximately which point she entered a wide-complex tachycardic rhythm, patient was compassionately extubated in accordance with her and family wishes. Patient ultimately ceased to breathe and at 1300 with family present at the bedside. Admission Exam (Per Admitting) Constitutional General: Sedated. nontoxic. Frail, Skin: Warm, dry, pale, Head: Atraumatic Ears, nose, mouth and throat: airway obscured by endotracheal tube Cardiovascular: Acrocyanosis with poor capillary refill and weak central pulses Respiratory: Ventilator settings reviewed Gastrointestinal: Non distended Musculoskeletal: No deformity, Discharge Data Consultations 07/26/23 11:09 ED Decision to Admit Stat Procedures Performed Operation Date: 07/26/23 10:15 <No data on this case meets the specified criteria> Hospital Course (1) STEMI (ST elevation myocardial infarction): General: Sedated. nontoxic. Frail, Skin: Warm, dry, pale, Head: Atraumatic Ears, nose, mouth and throat: airway obscured by endotracheal tube Cardiovascular: Acrocyanosis with poor capillary refill and weak central pulses Respiratory: Ventilator settings reviewed Gastrointestinal: Non distended Musculoskeletal: No deformity, (2) Cardiac arrest with successful resuscitation: (3) Protein-calorie malnutrition, severe: (4) Parkinsons disease: (5) Hypercapnia with mixed acid-base disorder: Coding Level of Care Code None Diagnoses STEMI (ST elevation myocardial infarction) I21.3 Cardiac arrest with successful resuscitation I46.9 Protein-calorie malnutrition, severe E43 Parkinson's disease, unspecified whether dyskinesia present, unspecified whether manifestations fluctuate G20.A1 Dyskinesia presence: unspecified whether dyskinesia Fluctuating manifestations: unspecified whether manifestations fluctuate Hypercapnia with mixed acid-base disorder E87.4
[2023-07-26] MEDS: MIDAZOLAM HCL 125 MG/250 ML BAG IV SCH (13:14)
[2023-07-26] MEDS: ICU Protocol for HYPERglycemia SCH (13:14)
[2023-07-26] MEDS: fentaNYL citrate 2,500 MCG/250 ML BAG IV SCH (13:14)
[2023-07-26] MEDS ORDERED: SODIUM BICARB 8.4% INJ 50 MEQ/50 ML SYR IV ONE (13:59)
[2023-07-26] MEDS ORDERED: ATROPINE SULFATE 0.1 MG/ML 10ML SYR IV ONE (13:59)
[2023-07-26] MEDS ORDERED: SODIUM CHLORIDE 0.9% 10ML FLUSH IV ONE (13:59)
--- NOTE | 2023-07-26 14:17 | Electrocardiogram Report ---
Test Reason : Blood Pressure : / mmHG Vent. Rate : 080 BPM Atrial Rate : 000 BPM P-R Int : 000 ms QRS Dur : 086 ms QT Int : 396 ms P-R-T Axes : 000 088 112 degrees QTc Int : 456 ms Atrial fibrillation Acute Inferior infarct Consider right ventricular involvement in acute inferior infarct Abnormal ECG When compared with ECG of 16-DEC-2022 10:23, Atrial fibrillation has replaced Sinus rhythm Acute Anterior infarct is now Present Confirmed by Jatinder Goldman ([id number]) on 07/26/2023 2:17:28 PM Referred By: REFERRED SELF Confirmed By:Jatinder Goldman
== END 2023-07-26 14:00 | disposition expired ==
LOC: ED 10:07 → 1E 11:16